=== PATIENT | female | born 1965 | race Caucasian/White ===

== ENCOUNTER 2017-05-03 10:00 | Emergency (ER) | payer MEDICARE ==
[2017-05-03] MEDS ORDERED: Metoclopramide HCl 10 MG/2 ML VIAL ONE (10:48)
[2017-05-03] MEDS ORDERED: diphenhydrAMINE HCl 50 MG/ML 1 ML VIAL ONE (10:48)
[2017-05-03 10:55] LABS: #Basophils 0.1 thou/uL (0.0-0.2); #Eosinphils 0.1 thou/uL (0.0-0.7); #Lymphocytes 2.4 thou/uL (1.20-3.40); #Monocytes 0.7 thou/uL (0.11-0.59); #Neutrophils 6.4 thou/uL (1.40-6.50); %Basophils 0.8 % (0.0-1.0); %Eosinophils 1.1 % (0.0-10.0); %Lymphocytes 24.6 % (21.0-51.0); %Monocytes 7.3 % (0.0-10.0); Hematocrit 48.4 % (36.0-47.0); Mean Platelet Volume 6.2 fL (7.4-10.4); Red Blood Cell (RBC) Count 5.59 mill/uL (4.20-5.40); White Blood Cell (WBC) Count 9.7 thou/uL (4.8-10.8)
[2017-05-03 11:15] LABS: ALT (SGPT) 10 U/L (8-55); AST (SGOT) 22 U/L (5-34); Alkaline Phosphatase 92 U/L (40-150); Anion Gap 15 mmol/L (10-20); BUN (Urea Nitrogen) 15 mg/dL (9.8-20.1); Bilirubin, Total 0.4 mg/dL (0.2-1.2); Calc. Creatinine Clearance 0 mL/min (70-130); Calcium 9.6 mg/dL (7.8-10.44); Carbon Dioxide 27 mmol/L (22-29); Chloride 101 mmol/L (98-107); Estimated GFR-MDRD 81; Globulin 3.8 g/dL (2.4-3.5); Protein, Total 7.7 g/dL (6.0-8.3)
[2017-05-03] MEDS ORDERED: Magnesium 2 GM/NS 0.9% 100 ML 2 GM in Premix Bag 1 BAG IVPB SCH (11:15)
--- NOTE | 2017-05-03 11:27 | CT ---
CT BRAIN WITHOUT CONTRAST: HISTORY: Headache, migraine. FINDINGS: Comparison is made with the exam of 06/21/13. No evidence of acute infarct, hemorrhage, midline shift, or abnormal extraaxial fluid collections is seen. The ventricular size is normal and the basilar cisterns patent. The bony calvarium is intac t. There is a small polyp/mucous retention cyst in the right maxillary sinus. IMPRESSION: No CT evidence of acute intracranial process. POS: YANNICKH
== END 2017-05-03 14:10 | disposition home or self-care (01) ==
LOC: ERS 10:00
DX: R51 Headache (principal); I11.0 Hypertensive heart disease with heart failure; I50.9 Heart failure, unspecified; E78.5 Hyperlipidemia, unspecified; F41.9 Anxiety disorder, unspecified; F32.9 Major depressive disorder, single episode, unspecified; Z79.899 Other long term (current) drug therapy
CPT/HCPCS: 36415; 70450; 80053; 85025; 94760; 96365; 96366; 96368; 96375; J1200; J2765; J3475

== ENCOUNTER 2017-12-29 09:56 | Outpatient (CLI) | payer MEDICARE | END 2017-12-29 09:57 | disposition home or self-care (01) | LOC: BICMAMMO 09:56 | PROVIDERS: ATTEND Internal Medicine Rheumatology | DX: M80.00XA Age-related osteoporosis with current pathological fracture, unspecified site, initial encounter for fracture (principal) | CPT/HCPCS: 77080 ==

== ENCOUNTER 2018-02-15 16:11 | Inpatient (IN) | payer MEDICARE ==
[2018-02-15] MEDS ORDERED: Ondansetron ODT 4 MG TAB PO PRN (17:42)
[2018-02-15] MEDS ORDERED: Acetaminophen 325 MG TAB PO PRN (17:42)
[2018-02-15] MEDS ORDERED: Sodium Chloride 0.9% 1,000 ML IV SCH (17:45)
[2018-02-15] MEDS ORDERED: Vancomycin HCl 1.25 GM in Sodium Chloride 0.9% 250 ML 250 ML IVPB SCH (17:45)
[2018-02-15] MEDS ORDERED: HYDROcodone/Acetaminophen 10/325 mg Tablet PO PRN (17:48)
[2018-02-15] MEDS ORDERED: SUMAtriptan Succinate 25 MG TAB PO PRN (17:48)
[2018-02-15] MEDS ORDERED: Furosemide 40 MG TAB PO PRN (17:48)
[2018-02-15] MEDS ORDERED: PROVENTIL INHALER 6.7 G (200 INHALATIONS) INH PRN (17:48)
[2018-02-15] MEDS ORDERED: EPINEPHRINE 0.3 MG IM PRN (17:48)
[2018-02-15 18:22] VITALS: BMI 32.3
[2018-02-15 18:27] LABS: #Basophils 0.1 thou/uL (0.0-0.2); #Eosinphils 0.1 thou/uL (0.0-0.7); #Lymphocytes 1.8 thou/uL (1.20-3.40); #Monocytes 0.8 thou/uL (0.11-0.59); #Neutrophils 9.2 thou/uL (1.40-6.50); %Basophils 0.7 % (0.0-1.0); %Eosinophils 0.7 % (0.0-10.0); %Lymphocytes 15.2 % (21.0-51.0); %Monocytes 6.7 % (0.0-10.0); %Neutrophils 76.8 % (42.0-75.0); Hemoglobin 13.2 g/dL (12.0-16.0); Mean Corpuscular HGB CONC 32.6 g/dL (32.0-36.0); Mean Corpuscular Hemoglobin 29.4 pg (27.0-31.0); Mean Corpuscular Volume 90.3 fL (78.0-98.0); Mean Platelet Volume 5.3 fL (7.4-10.4); Platelet Count 353 thou/uL (130-400); RBC Distribution Width 11.8 % (11.5-14.5); Red Blood Cell (RBC) Count 4.48 mill/uL (4.20-5.40)
[2018-02-15 18:45] LABS: Anion Gap 14 mmol/L (10-20); BUN (Urea Nitrogen) 15 mg/dL (9.8-20.1); Calc. Creatinine Clearance 139 mL/min (70-130); Calcium 8.7 mg/dL (7.8-10.44); Carbon Dioxide 23 mmol/L (22-29); Chloride 105 mmol/L (98-107); Estimated GFR-MDRD Greater than 90; Glucose 81 mg/dL (70-105); Potassium 4.4 mmol/L (3.5-5.1); Sodium 138 mmol/L (136-145)
[2018-02-15] MEDS ORDERED: METHadone HCl 10 MG TAB PO SCH (19:15)
[2018-02-15] MEDS ORDERED: cefTRIAXone\\ROCEPHIN 1 GM in Sodium Chloride 0.9% 100 ML IVPB SCH (20:00)
[2018-02-15] MEDS: Pravastatin Sodium 40 MG TAB PO SCH (20:53)
[2018-02-15] MEDS: clonazePAM 0.5 MG TAB PO SCH (20:53)
[2018-02-15] MEDS: Gabapentin 300 MG CAP PO SCH (20:53)
[2018-02-15] MEDS: Escitalopram Oxalate 20 mg Tablet PO SCH (20:53)
--- NOTE | 2018-02-15 20:59 | ULT ---
SOFT TISSUE ULTRASOUND 02/15/18 HISTORY: Possible abscess and cellulitis in the left groin. COMPARISON: None. TECHNIQUE: Targeted sonographic imaging of the left groin is performed. FINDINGS: There is evidence of edema on the static images. There is a complex echotexture structure in the left groin which appears to be just inferior to the dermis measuring 1.0 x 0.7 x 0.8 cm. An infected flui d collection cannot be excluded. No evidence of vascular flow. IMPRESSION: 1. Soft tissue cellulitis/edema. 2. Complex lesion in the subdermal soft tissues without evidence of flow. A small abscess/infect ed fluid collection should be considered. POS: BEE
[2018-02-15] MEDS: HYDROcodone/Acetaminophen 10/325 mg Tablet PO PRN (21:04)
[2018-02-16 00:24] LABS: Actual Bicarbonate (HCO3v) 34 mEq/L (22-28); Base Excess 5.7 mEq/L (-2.0 to +3.0); pH (venous) 7.318 (7.32-7.43)
[2018-02-16 00:25] LABS: Hemoglobin (Hb) 13.4 g/dL (11.7-16.0)
[2018-02-16 00:26] LABS: Calcium, Ionized 1.09 mmol/L (1.16-1.32); Chloride (ABG LAB) 101 mmol/L (98-106); Potassium - ABG Lab 4.4 mmol/L (3.70-5.30); Sodium 138.8 mmol/L (133-146)
[2018-02-16] MEDS: cefTRIAXone\\ROCEPHIN 1 GM in Sodium Chloride 0.9% 100 ML IVPB SCH ×2 (01:23→19:41)
[2018-02-16] MEDS: HYDROcodone/Acetaminophen 10/325 mg Tablet PO PRN ×2 (05:44→14:11)
[2018-02-16 05:55] LABS: #Basophils 0.1 thou/uL (0.0-0.2); #Eosinphils 0.3 thou/uL (0.0-0.7); #Lymphocytes 2.7 thou/uL (1.20-3.40); #Monocytes 0.9 thou/uL (0.11-0.59); #Neutrophils 6.2 thou/uL (1.40-6.50); %Basophils 0.6 % (0.0-1.0); %Eosinophils 3.4 % (0.0-10.0); %Lymphocytes 26.3 % (21.0-51.0); %Monocytes 9.1 % (0.0-10.0); %Neutrophils 60.7 % (42.0-75.0); Hemoglobin 11.7 g/dL (12.0-16.0); Mean Corpuscular HGB CONC 33.4 g/dL (32.0-36.0); Mean Platelet Volume 5.7 fL (7.4-10.4); Platelet Count 321 thou/uL (130-400); RBC Distribution Width 11.7 % (11.5-14.5); Red Blood Cell (RBC) Count 3.91 mill/uL (4.20-5.40); White Blood Cell (WBC) Count 10.1 thou/uL (4.8-10.8)
[2018-02-16] MEDS ORDERED: Vancomycin HCl 1.5 GM in Sodium Chloride 0.9% 250 ML 300 ML IVPB SCH (06:00)
[2018-02-16 06:10] LABS: Anion Gap 12 mmol/L (10-20); BUN (Urea Nitrogen) 16 mg/dL (9.8-20.1); Calc. Creatinine Clearance 143 mL/min (70-130); Calcium 8.3 mg/dL (7.8-10.44); Carbon Dioxide 31 mmol/L (22-29); Chloride 102 mmol/L (98-107); Estimated GFR-MDRD Greater than 90; Glucose 101 mg/dL (70-105); Potassium 3.9 mmol/L (3.5-5.1); Sodium 141 mmol/L (136-145)
--- NOTE | 2018-02-16 06:38 | PDOC.FM ---
- Subjective Subjective: Lyn Abad seen at bedside this morning. She is doing well. Overnight she peripheral IV access was lost. Left IJ placed by Dr. Nayak. On CXR, radiologist had concern for arterial placement. Blood gas confirmed venous placement. No other acute events overnight. Patient remained afebrile. Denies fever, chills, chest pain, dyspnea, n/v. Pain is well controlled but is still present from cellulitis. - Objective MAR Reviewed: Yes Vital Signs & Weight: Vital Signs (12 hours) Temp Pulse Resp BP Pulse Ox 02/16/18 04:47 98.6 F 73 18 117/81 97 02/16/18 01:24 99 F 83 18 117/81 94 L 02/15/18 20:40 99.1 F 84 18 133/66 95 02/15/18 20:00 99.1 F 84 18 95 Weight Weight 88.224 kg I&O: 02/14/18 02/15/18 02/16/18 06:59 06:59 06:59 Intake Total 1070 Balance 1070 Result Diagrams: 02/16/18 04:32 02/16/18 04:32 <Demian Bach - Last Filed: 02/16/18 08:55> - Objective Vital Signs & Weight: Vital Signs (12 hours) Temp Pulse Resp BP Pulse Ox 02/16/18 08:17 99.1 F 76 16 119/77 96 02/16/18 08:00 99.1 F 76 16 96 02/16/18 04:47 98.6 F 73 18 117/81 97 02/16/18 01:24 99 F 83 18 117/81 94 L Weight Admit Weight 88.224 kg Weight 88.224 kg I&O: 02/15/18 02/16/18 02/17/18 06:59 06:59 06:59 Intake Total 1070 Balance 1070 Result Diagrams: 02/16/18 04:32 02/16/18 04:32 <Omar Westbrook - Last Filed: 02/16/18 12:11> Phys Exam - Physical Examination Constitutional: NAD HEENT: moist MMs, sclera anicteric Neck: no JVD, supple, full ROM Respiratory: no wheezing, no rales, no rhonchi, clear to auscultation bilateral Cardiovascular: RRR, no significant murmur Gastrointestinal: soft, non-tender, no distention Musculoskeletal: no edema, pulses present Neurological: non-focal, normal sensation, moves all 4 limbs Psychiatric: normal affect, A&O x 3 Deviation from normal: no progression of erythema or edema to left groin -: site is still indurated <Demian Bach - Last Filed: 02/16/18 08:55> Dx/Plan (1) Left leg cellulitis Code(s): L03.116 - CELLULITIS OF LEFT LOWER LIMB Status: Acute (2) Scleroderma Code(s): M34.9 - SYSTEMIC SCLEROSIS, UNSPECIFIED Status: Chronic (3) Rheumatoid arthritis Code(s): M06.9 - RHEUMATOID ARTHRITIS, UNSPECIFIED Status: Chronic (4) Inflammatory polyarthritis Code(s): M06.4 - INFLAMMATORY POLYARTHROPATHY Status: Chronic (5) COPD, severe Code(s): J44.9 - CHRONIC OBSTRUCTIVE PULMONARY DISEASE, UNSPECIFIED Status: Chronic (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 - JONO-DANLOS SYNDROME Status: Chronic (7) Hypertension Code(s): I10 - ESSENTIAL (PRIMARY) HYPERTENSION Status: Chronic (8) Paroxysmal a-fib Code(s): I48.0 - PAROXYSMAL ATRIAL FIBRILLATION Status: Chronic - Plan Plan: 1) Cellulitis, left groin - S/p I&D in [facility], wound cultures obtained in clinic, Temp as high as 102 at home - Cellulitis in setting of immunocompromised patient with multiple comorbidities, felt admission was necessary - Starting on Vancomycin and Rocephin - Cont to monitor - Cont IVFs 2) Steroid dependent COPD - Continue supplemental O2, baseline home O2 is 2-3 L NC - Continue home prednisone 3) Scleroderma - home meds 4) RA: - Home meds - on daily opioids 5) Jono-Danlos - home meds - difficulty with Peripheral IV placement - left IJ central venous line placed last night 6) pAfib - continue to monitor routine vitals 7) HTN - home meds <Demian Bach - Last Filed: 02/16/18 08:55> Attending Addendum - Attending Addendum Date/Time: 02/16/18 [id number] I personally evaluated the patient and discussed the management with Dr. Bach. I agree with the History, Examination, Assessment and Plan documented above with any addition or exceptions noted below. Patient here for L groin abscess s/p outpatient I&D in the setting of chronic immune suppression due to comorbid autoimmmune conditions. She reports pain continues to occur, and the site continues to drain. Cultures pending in outpatient setting. Continue Vanc and Rocephin for now. Will sofia area to ensure improvement over the weekend. Anticipate several days hospitalization due to location of this abscess. No further fluctuance, but area continues to be largely indurated. If not improving in next 48 hours or so, may need GenSurg consult to consider further I&D versus debridement though U/S did not show any large fluid collections at this time. Continue wound care. <Omar Westbrook - Last Filed: 02/16/18 12:11>
--- NOTE | 2018-02-16 08:36 | RAD ---
ONE VIEW CHEST: HISTORY: Central line placement. COMPARISON: 03/24/2016 FINDINGS: AP upright chest radiograph demonstrates a left-sided catheter with the distal tip projecting over th e aortic arch. The possibility of arterial access is raised. There is no pneumothorax. Normal card iac silhouette. The right hemidiaphragm is elevated. IMPRESSION: Left-sided catheter, as described above. The possibility of arterial access is raised. Correlate wi arterial blood gas. The results of the study were discussed with Dr. Nayak, as well as the patient's nurse, Clemencia, on 02/16/2018 at 12:07 a.m. CODE CR POS: YANNICK
[2018-02-16] MEDS: Ondansetron HCl/PF 4 MG/2 ML Vial IVP PRN (08:43)
[2018-02-16] MEDS ORDERED: RISEDRONATE SODIUM 35 MG PO SCH (09:00)
--- NOTE | 2018-02-16 09:00 | OP-2 ---
DATE OF PROCEDURE: 02/15/2018 RESIDENT: Sofia Nayak M.D. ATTENDING PHYSICIAN: William Franco D.O. PROCEDURE: Left internal jugular central line placement. INDICATIONS: No peripheral access. Connective tissue disorder. Unable to obtain peripheral access. Need for IV antibiotics. ESTIMATED BLOOD LOSS: 5 mL. PROCEDURE IN DETAIL: After risks, benefits, and alternatives were explained to the patient, informed consent was obtained. A preprocedural survey of the patient's neck vasculature was performed and the left internal jugular was determined to be the best approach. The patient was prepped and draped in usual sterile fashion. The left internal jugular vein was identified on ultrasound and verified using color flow Doppler and vessel compression. Skin was anesthetized with 5 mL of 1% lidocaine without epinephrine. The left internal jugular vein was cannulated using the introducer needle under ultrasound visualization. Slow blood return was noted to be coming through the introducer needle. The J-wire was then easily passed through the introducer needle to the level of approximately 25 cm. The introducer needle was then removed and the skin was nicked with an 11 blade. A soft tissue dilator was then passed over the J wire. The dilator was removed and the central line was placed to the 17 cm sofia. The line was sutured in place using a 3-0 nylon suture. Prior to suturing the central line, all 3 ports were aspirated and flushed and determined to be in good working position. The line was then covered with a sterile dressing with antimicrobial gel patch over the entry site. A post-procedural chest x-ray was obtained and showed no pneumothorax, but showed that the tip of the triple-lumen catheter was overlying the aortic knob. The provider was called regarding this finding and radiologist recommended blood gas analysis from the line to verify that the line was not located within the arterial system. Provider went and jones blood from the central line. At this time it was noted that the brown central port was no longer flushing or aspirating. Blood was easily obtained from the blue side port. Blood gas analysis revealed a pH of 7.318, pCO2 of 67.8 and a pO2 of 25.1 with a bicarbonate of 34.0. Based on blood gas analysis it appears that the tip of the catheter is in the left subclavian vein. Findings were discussed with Dr. Franco who was in agreement. The patient tolerated the procedure well. Dr. Franco was present for the placement of the central line and left at the time the line was stitched into place. SUSANNAH
--- NOTE | 2018-02-16 09:00 | HP-2 ---
DATE OF ADMISSION: 02/15/2018 TIME: 1730. CODE STATUS: DNI. PRIMARY CARE PHYSICIAN: Dr. Demian Bach. ATTENDING: Flakita Bahena M.D. RESIDENT: Dr. Benjamin Li. HISTORIAN: The patient. CHIEF COMPLAINT: Groin pain. HISTORY OF PRESENT ILLNESS: This is a 52-year-old female with an extensive past medical history who presented to [facility] today for swelling, redness, and pain to the left groin region. This pain initially started about 6 days ago and began as a small lesion that the patient thought was an ingrown hair. Two days ago, it acutely worsened with increased redness and pain and subjective fevers. The area of swelling and induration burst while patient was in the shower, leaking pus and blood. Patient is now nauseous with continued subjective fevers. Incision and drainage was performed in the outside office with wound cultures taken. Physicians were able to express small amount of serosanguineous fluid from the indurated incision site. Patient has been recently diagnosed with rheumatoid arthritis and scleroderma by lead loader. She has been started on leflunomide, Atelvia and has been on chronic prednisone for some time. The patient is immunocompromised with a significant burden of past medical history. PAST MEDICAL HISTORY: 1. Jono-Danlos syndrome. 2. Hypertension. 3. Hyperlipidemia. 4. Chronic obstructive pulmonary disease. 5. Paroxysmal atrial fibrillation. 6. Migraine with aura. 7. Severe osteoporosis. 8. Anxiety with depression. 9. Congestive heart failure. 10. Sleep apnea. 11. 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 12. Rheumatoid arthritis. 13. Scleroderma. 14. Vitamin D deficiency. PAST SURGICAL HISTORY: 1. Appendectomy in 1981. 2. Cholecystectomy in 1988. 3. Hysterectomy in 2003. 4. Tonsillectomy at 18 years of age. ALLERGIES: IODINE, NSAIDs, SULFONAMIDES, and PENICILLIN. CURRENT MEDICATIONS: 1. Calcium carbonate 1000 mg p.o. daily. 2. Vitamin D3 of 8000 units p.o. daily. 3. Clonazepam 0.5 mg p.o. b.i.d. 4. Plavix 75 mg p.o. daily. 5. Citalopram 20 mg p.o. q.p.m. 6. Fluticasone nasal spray two sprays in each naris daily. 7. Furosemide 40 mg p.o. b.i.d. 8. Gabapentin 300 mg p.o. b.i.d. 9. Turner 10/325 one-tab q.6 hours p.r.n. 10. Leflunomide 20 mg p.o. daily. 11. Methadone 20 mg p.o. daily. 12. Mirabegron 50 mg p.o. daily. 13. Singulair 10 mg p.o. daily. 14. Potassium chloride 20 mEq p.o. daily. 15. Pravastatin 40 mg p.o. q.p.m. 16. Prednisone 5 mg p.o. daily. 17. Atelvia 35 mg p.o. every 7 days. 18. Sumatriptan 25 mg p.o. q.4 hours. FAMILY HISTORY: Significant for sister with Jono-Danlos syndrome, father with kidney disease, hypertension, and mother with hypertension. SOCIAL HISTORY: Patient denies tobacco, alcohol, or drug use. REVIEW OF SYSTEMS: General: Denies fever, chills, denies night sweats. ENT: Denies nasal congestion. Denies sore throat. Respirations: Denies cough, no congestion. Cardiovascular: Denies chest pain, denies palpitations. GI: Endorses nausea, denies vomiting, denies diarrhea. : Denies incontinence. Denies dysuria. Skin: Endorses lesions. Endorses swelling. Endorses pain. Musculoskeletal: Denies joint pain. Denies muscle tenderness. Neurologic: Denies weakness denies numbness. Psychiatric: Denies anxiety. Denies depression. PHYSICAL EXAMINATION: VITAL SIGNS: Temperature 99.4, pulse 92, respirations 18, O2 sats 95% on 3 liters nasal cannula, blood pressure is 131/86. GENERAL: Alert, oriented x3, in no acute distress, obese. ENT: Nasal mucosa within normal limits. Oropharynx within normal limits. NECK: Supple, without lymphadenopathy. CARDIOVASCULAR: Regular rate and rhythm. No murmurs. RESPIRATORY: Normal effort, clear to auscultation bilaterally. ABDOMEN: Soft, nontender to palpation. No masses or distention felt. EXTREMITIES: No clubbing, cyanosis. NEUROLOGIC: Cranial nerves are II-XII intact. SKIN: Erythematous, edematous, and tender area of induration of the left groin measuring approximately 4 x 4 cm, concerning for tracking and tunneling. PSYCHIATRIC: Alert and oriented. LABORATORY DATA: White blood cell count 12.0, hemoglobin 13.2, hematocrit 40.0 , platelets of 303. Sodium 138, potassium 4.4, chloride 105, bicarbonate 23, BUN 15, creatinine 0.66, glucose of 81. ASSESSMENT AND PLAN: 1. Cellulitis with abscess to the left groin, status post drainage: We will obtain ultrasound of the groin to check for any more fluid pockets that would be amenable to I&D. We will start the patient on vancomycin dose per pharmacy until we can calculate creatinine clearance. Patient is immunocompromised and we will need broad spectrum antibiotics until culture results. Wound culture sent from the office. 2. Scleroderma. We will continue the prednisone and immunomodulator started by her lead loader last week. 3. Rheumatoid arthritis. See plans for scleroderma. 4. Chronic obstructive pulmonary disease. We will continue home medications. 5. Paroxysmal atrial fibrillation. We will continue home medications. 6. Chronic pain. Continue home medications. 7. Essential hypertension. Continue home medications. 8. Osteoporosis. Continue home medications. 9. Hyperlipidemia. Continue home medications. 10. Depression. Continue home medications. 11. Vitamin D deficiency. Continue home medications. 12. Jono-Danlos syndrome. DISPOSITION AND LENGTH OF HOSPITAL STAY: 2+ days, symptomatic meds will be provided. Assessment and plan discussed with Dr. Sophia Gannon. SUSANNAH
[2018-02-16] MEDS: predniSONE 5 MG TAB PO SCH (10:26)
[2018-02-16] MEDS: clonazePAM 0.5 MG TAB PO SCH ×2 (10:27→19:41)
[2018-02-16] MEDS: Leflunomide 10 mg Tablet PO SCH (10:28)
[2018-02-16] MEDS: Furosemide 40 MG TAB PO SCH (10:28)
[2018-02-16] MEDS: Clopidogrel Bisulfate 75 MG TAB PO SCH (10:28)
[2018-02-16] MEDS: Gabapentin 300 MG CAP PO SCH ×2 (10:29→19:41)
[2018-02-16] MEDS: Potassium Chloride 20 MEQ TAB PO SCH (10:29)
[2018-02-16] MEDS: Montelukast Sodium 10 mg Tablet PO SCH (10:29)
[2018-02-16] MEDS: Fluticasone Propionate Nasal Spray 16 gm Bottle NASAL SCH (10:29)
[2018-02-16] MEDS: Calcium Carbonate 500 MG TAB PO SCH (10:31)
[2018-02-16] MEDS: Vancomycin HCl 1.5 GM in Sodium Chloride 0.9% 250 ML 300 ML IVPB SCH (13:23)
[2018-02-16] MEDS: METHadone HCl 10 MG TAB PO SCH (16:09)
[2018-02-16] MEDS: Escitalopram Oxalate 20 mg Tablet PO SCH (19:41)
[2018-02-16] MEDS: Pravastatin Sodium 40 MG TAB PO SCH (19:41)
[2018-02-17] MEDS: Vancomycin HCl 1.5 GM in Sodium Chloride 0.9% 250 ML 300 ML IVPB SCH ×2 (01:59→12:38)
--- NOTE | 2018-02-17 07:26 | PDOC.FM ---
- Subjective Subjective: Patient is feeling well this morning although reports continued pain in groin area and no improvement in abscess site. She is tolerating PO liquids but has no appetite. No fevers documented but reports feeling feverish. No acute events overnight. - Objective MAR Reviewed: Yes Vital Signs & Weight: Vital Signs (12 hours) Temp Pulse Resp BP Pulse Ox 02/17/18 04:46 94 L 02/17/18 00:00 98.7 F 02/16/18 20:00 99.2 F 79 18 107/76 94 L Weight Admit Weight 88.224 kg Weight 88.224 kg I&O: 02/16/18 02/17/18 02/18/18 06:59 06:59 06:59 Intake Total 1070 830 Balance 1070 830 Result Diagrams: 02/16/18 04:32 02/16/18 04:32 <Akilah Smith - Last Filed: 02/17/18 10:57> - Objective Vital Signs & Weight: Vital Signs (12 hours) Temp Pulse Resp BP Pulse Ox 02/17/18 08:08 98.8 F 68 18 113/76 97 02/17/18 04:46 94 L 02/17/18 00:00 98.7 F Weight Admit Weight 88.224 kg Weight 88.224 kg I&O: 02/16/18 02/17/18 02/18/18 06:59 06:59 06:59 Intake Total 1070 830 Balance 1070 830 Result Diagrams: 02/16/18 04:32 02/16/18 04:32 <Cynthia Faria - Last Filed: 02/17/18 11:09> Phys Exam - Physical Examination Constitutional: NAD HEENT: moist MMs Respiratory: no wheezing, no rales Cardiovascular: RRR Gastrointestinal: soft, non-tender L groin with abscess s/p i&d. incision draining serous fluid, ttp induration, erythema, and area of fluctuation at 3oclock from incision Musculoskeletal: no edema Neurological: moves all 4 limbs Psychiatric: A&O x 3 <Akilah Smith - Last Filed: 02/17/18 10:57> Dx/Plan (1) Cellulitis Code(s): L03.90 - CELLULITIS, UNSPECIFIED Status: Acute (2) Abscess Code(s): L02.91 - CUTANEOUS ABSCESS, UNSPECIFIED Status: Acute (3) Rheumatoid arthritis Code(s): M06.9 - RHEUMATOID ARTHRITIS, UNSPECIFIED Status: Chronic (4) COPD, severe Code(s): J44.9 - CHRONIC OBSTRUCTIVE PULMONARY DISEASE, UNSPECIFIED Status: Chronic (5) Lan-Danlos disease Code(s): Q79.6 - LAN-DANLOS SYNDROME Status: Chronic (6) Hypertension Code(s): I10 - ESSENTIAL (PRIMARY) HYPERTENSION Status: Chronic (7) Paroxysmal a-fib Code(s): I48.0 - PAROXYSMAL ATRIAL FIBRILLATION Status: Chronic (8) Depression Code(s): F32.9 - MAJOR DEPRESSIVE DISORDER, SINGLE EPISODE, UNSPECIFIED Status : Chronic - Plan Plan: Cellulitis and Abscess of left groin in Immunocompromised - S/p I&D in [facility], wound cultures obtained in clinic, no results yet, Temp as high as 102 at home - no improvement since admission, concern for 2nd abcess - consult GS for eval for debridement - continue wound care - continue IV Vancomycin and Rocephin, plan to change to PO once sensitivites are back - PO hydration Steroid dependent COPD - Continue supplemental O2, baseline home O2 is 2-3 L NC - Continue home prednisone Scleroderma - home meds RA: - Home meds - on daily opioids Lan-Danlos - home meds - difficulty with Peripheral IV placement - left IJ central venous line placed last night pAfib - continue to monitor routine vitals HTN - home meds Hx of Migraines - home meds Depression - continue home medications. Dispo: d/c after sensitivities are back for appropriate PO abx. <Akilah Smith - Last Filed: 02/17/18 10:57> Attending Addendum - Attending Addendum Date/Time: 02/17/18 1107 I personally evaluated the patient at 0900 am and discussed the management with Dr. Smith. I agree with the History, Examination, Assessment and Plan documented above with any addition or exceptions noted below. Left groin/mons abscess and cellulitis- significant induration and new fluctuance superilaterally to prior incision- continue IV abx and warm compresses. Gen Surg consult since patient has pain control issues and may need further I&D under anesthesia. Lan Danlos and scleroderma- home meds Chronic Pain- controlled at this time. Patient on home methadone. Continue home meds + prn morphiine. May need anesthesia on board if pain worsens. <Cynthia Faria - Last Filed: 02/17/18 11:09>
[2018-02-17] MEDS: Fluticasone Propionate Nasal Spray 16 gm Bottle NASAL SCH (08:18)
[2018-02-17] MEDS: predniSONE 5 MG TAB PO SCH (08:20)
[2018-02-17] MEDS: Leflunomide 10 mg Tablet PO SCH (08:20)
[2018-02-17] MEDS: Gabapentin 300 MG CAP PO SCH ×2 (08:20→21:08)
[2018-02-17] MEDS: clonazePAM 0.5 MG TAB PO SCH ×2 (08:20→20:30)
[2018-02-17] MEDS: Furosemide 40 MG TAB PO SCH (08:20)
[2018-02-17] MEDS: Montelukast Sodium 10 mg Tablet PO SCH (08:20)
[2018-02-17] MEDS: Potassium Chloride 20 MEQ TAB PO SCH (08:20)
[2018-02-17] MEDS: Clopidogrel Bisulfate 75 MG TAB PO SCH (08:20)
[2018-02-17] MEDS: Calcium Carbonate 500 MG TAB PO SCH ×2 (08:49→09:45)
[2018-02-17] MEDS: Ondansetron HCl/PF 4 MG/2 ML Vial IVP PRN (08:49)
[2018-02-17 13:27] LABS: Vancomycin, Trough 17.4 ug/mL
[2018-02-17] MEDS ORDERED: Hydrocortisone Sod Succ/PF 100 mg/2 ml Vial ONE (13:55)
[2018-02-17] MEDS ORDERED: PROPOFOL 200 MG/20 ML VIAL ONE (13:55)
[2018-02-17] MEDS ORDERED: Lidocaine 1% PF 5 ML VIAL ONE (13:55)
[2018-02-17] MEDS: METHadone HCl 10 MG TAB PO SCH (16:35)
--- NOTE | 2018-02-17 16:44 | CON ---
DATE OF CONSULTATION: 02/17/2018 REASON FOR CONSULTATION: Left groin abscess. 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 She now has erythema of most of her left labia anteriorly and it is still angie y tender. She has not had much drainage despite an I&D in the clinic and has not improved on IV vanc omycin. PAST MEDICAL HISTORY: Extensive including rheumatoid arthritis, Jono-Danlos syndrome, hypertension , hyperlipidemia, COPD on home oxygen, paroxysmal atrial fibrillation, congestive heart failure, slee p apnea and recently diagnosed scleroderma, and longstanding rheumatoid arthritis. She also has asa min D deficiency, anxiety, depression, and osteoporosis, as well as migraines. PAST SURGICAL HISTORY: Appendectomy, cholecystectomy, hysterectomy, tonsillectomy all over 20 years ago. ALLERGIES: She reports allergies to IODINE, NSAIDs, SULFA, and PENICILLIN. OUTPATIENT MEDICATIONS: Include Vitamin D, calcium, clonazepam, Plavix, citalopram, fluticasone, [place], gabapentin, Pearl, methadone, leflunomide, mirabegron, Singulair, potassium, pravastatin, prednis one 5 mg daily, Atelvia, and sumatriptan. INPATIENT MEDICATIONS: She is on vancomycin, hydrocodone, albuterol, calcium, ceftriaxone, vitamin D , clonazepam, Plavix, escitalopram, fluticasone, Lasix, gabapentin, leflunomide, methadone, mirabegro n, montelukast, risedronate, potassium, pravastatin, prednisone 5 mg daily, and multiple p.r.n. FAMILY HISTORY: Jono-Danlos, kidney disease, and hypertension. REVIEW OF SYSTEMS: Ten-system review of systems is negative except per HPI and the following: She d oes report subjective fevers prior to admission, chronic dyspnea on exertion, and chronic pain. PHYSICAL EXAMINATION: GENERAL: Reveals a comfortable appearing woman in no acute distress. She is not flushed or toxic or diaphoretic. She is not jaundiced or icteric. HEENT: Unremarkable. NECK: Supple without significant lymphadenopathy. HEART: Regular in its rate and rhythm without murmurs, rubs or gallops. LUNGS: Clear, although breath sounds are quite distant and diminished bilaterally. ABDOMEN: Soft, nontender and nondistended with healed lower midline incisions. EXTREMITIES: Warm and well perfused without edema. Her left labia is very indurated, tender and clayton thematous. She has a small I&D site without any expressible drainage. NEUROLOGIC: No focal deficits. PSYCHIATRIC: Alert, oriented, and appropriate. LABORATORY DATA: White count is normal at 10.1 yesterday, down from 12 at admission. She did have a left shift of 76% neutrophils on admission. Bicarb is 31, but other electrolytes are unremarkable. Soft tissue ultrasound showed edema of the soft tissues and a hypoechoic fluid collection in the sub dermal tissues with no flow consistent with abscess. ASSESSMENT: Left groin abscess, which failed I&D in the clinic. She has a large amount of induratio n and did not have adequate anesthesia with local alone in the clinic, so I will plan to take her to the operating room for repeat I&D. She did have breakfast before 8:00, but nothing since and we will keep her n.p.o. until after OR. Postoperatively, she will require ongoing wound care and antibiotic s. The procedure and its inherent risks were discussed with the patient and her mother understand an d accept these risks and wish to proceed. She does give permission to intubate her if need be. Alth ough, I do not anticipate that this will be necessary.
[2018-02-17] MEDS: cefTRIAXone\\ROCEPHIN 1 GM in Sodium Chloride 0.9% 100 ML IVPB SCH (20:32)
[2018-02-17] MEDS: Escitalopram Oxalate 20 mg Tablet PO SCH (21:08)
[2018-02-17] MEDS: Pravastatin Sodium 40 MG TAB PO SCH (21:08)
[2018-02-17] MEDS ORDERED: Morphine 4 MG/ML VIAL ONE (22:03)
[2018-02-17] MEDS ORDERED: Fentanyl 100 MCG/2 ML VIAL ONE ×3 (22:44→23:36)
[2018-02-17] MEDS ORDERED: Bupivacaine/Epinephrine 0.25% 30 ML VIAL ONE (23:08)
[2018-02-17] MEDS ORDERED: Promethazine HCl 25 MG/ML VIAL IM PRN (23:30)
[2018-02-17] MEDS ORDERED: Promethazine HCl 25 MG/ML VIAL SLOW IVP PRN (23:30)
[2018-02-17] MEDS ORDERED: Ondansetron HCl/PF 4 MG/2 ML Vial IVP PRN (23:30)
[2018-02-18] MEDS: Vancomycin HCl 1.5 GM in Sodium Chloride 0.9% 250 ML 300 ML IVPB SCH ×2 (01:30→13:35)
--- NOTE | 2018-02-18 07:01 | PDOC.FM ---
- Subjective Subjective: Patient is doing well this morning. Reports pain is much improved. She was taken back to the OR for surgical I&D around 0000, so she does report some fatigue. Otherwise is wanting to try to eat breakfast. No other complaints. Voiding/stooling normally. - Objective MAR Reviewed: Yes Vital Signs & Weight: Vital Signs (12 hours) Temp Pulse Resp BP Pulse Ox 02/18/18 04:33 98.6 F 70 20 103/67 95 02/17/18 20:00 98.8 F 74 20 115/76 96 Weight Admit Weight 88.224 kg Weight 88.224 kg I&O: 02/17/18 02/18/18 02/19/18 06:59 06:59 06:59 Intake Total 830 240 Balance 830 240 Result Diagrams: 02/16/18 04:32 02/16/18 04:32 <Akilah Smith - Last Filed: 02/18/18 07:43> - Objective Vital Signs & Weight: Vital Signs (12 hours) Temp Pulse Resp BP Pulse Ox 02/18/18 20:50 98.0 F 76 20 109/71 97 02/18/18 19:44 98.1 F 57 L 16 96 Weight Admit Weight 88.224 kg Weight 88.224 kg I&O: 02/17/18 02/18/18 02/19/18 06:59 06:59 06:59 Intake Total 830 1010 600 Balance 830 1010 600 Result Diagrams: 02/16/18 04:32 02/16/18 04:32 <Cynthia Faria - Last Filed: 02/18/18 22:29> Phys Exam - Physical Examination Constitutional: NAD HEENT: moist MMs Respiratory: no wheezing, no rales, clear to auscultation bilateral distant breath sounds Cardiovascular: RRR, no significant murmur Gastrointestinal: soft, non-tender I&D sites with serous drainage, improved erythema and induration Neurological: moves all 4 limbs Psychiatric: A&O x 3 <Akilah Smith - Last Filed: 02/18/18 07:43> Dx/Plan (1) Cellulitis Code(s): L03.90 - CELLULITIS, UNSPECIFIED Status: Acute (2) Abscess Code(s): L02.91 - CUTANEOUS ABSCESS, UNSPECIFIED Status: Acute (3) Rheumatoid arthritis Code(s): M06.9 - RHEUMATOID ARTHRITIS, UNSPECIFIED Status: Chronic (4) COPD, severe Code(s): J44.9 - CHRONIC OBSTRUCTIVE PULMONARY DISEASE, UNSPECIFIED Status: Chronic (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 Daniel yesterday - continue wound care for dressing changes, will need outpatient wound care - continue IV Vancomycin and Rocephin, plan to change to PO once sensitivites are back - PO hydration Steroid dependent COPD - Continue supplemental O2, baseline home O2 is 2-3 L NC - Continue home prednisone Scleroderma - home meds RA: - Home meds - on daily opioids Lan-Danlos - home meds - difficulty with Peripheral IV placement - left IJ central venous line in place pAfib - continue to monitor routine vitals HTN - home meds Hx of Migraines - home meds Depression - continue home medications. Dispo: d/c after sensitivities are back for appropriate PO abx. <Akilah Smith - Last Filed: 02/18/18 07:43> Attending Addendum - Attending Addendum Date/Time: 02/18/181 I personally evaluated the patient at 0855 am and discussed the management with Dr. Smith I agree with the History, Examination, Assessment and Plan documented above with any addition or exceptions noted below. Abscess- improving- expect d/c tomorrow after sensitivities return and wound care plan set up. <Cynthia Faria - Last Filed: 02/18/18 22:29>
[2018-02-18] MEDS: Leflunomide 10 mg Tablet PO SCH (08:21)
[2018-02-18] MEDS: clonazePAM 0.5 MG TAB PO SCH ×2 (08:21→20:30)
[2018-02-18] MEDS: predniSONE 5 MG TAB PO SCH (08:21)
[2018-02-18] MEDS: Calcium Carbonate 500 MG TAB PO SCH (08:21)
[2018-02-18] MEDS: Furosemide 40 MG TAB PO SCH (08:22)
[2018-02-18] MEDS: Potassium Chloride 20 MEQ TAB PO SCH (08:22)
[2018-02-18] MEDS: Fluticasone Propionate Nasal Spray 16 gm Bottle NASAL SCH (08:22)
[2018-02-18] MEDS: Montelukast Sodium 10 mg Tablet PO SCH (08:22)
[2018-02-18] MEDS: Gabapentin 300 MG CAP PO SCH ×2 (08:22→20:32)
[2018-02-18] MEDS: Clopidogrel Bisulfate 75 MG TAB PO SCH (08:22)
[2018-02-18] MEDS: Ondansetron HCl/PF 4 MG/2 ML Vial IVP PRN (08:56)
[2018-02-18 15:03] LABS: Vancomycin, Trough 15.8 ug/mL
--- NOTE | 2018-02-18 15:55 | PDOC.GSPN ---
Surgery Progress Note: Subj - Subjective Narrative: Patient is feeling better than yesterday. She is still sore at her operative site but not as tender as she was before her I&D. Her wound is clean and without expressible purulence. There is still a rim of induration tissue around the abscess cavity. Assessment/plan: Status post I&D of left groin abscess doing well. Continue wet- to-dry dressings and antibiotics. Eventually the induration in the surrounding tissues will either resolve or abscess. Surgery Progress Note: Obj - Vital signs Vital signs: Vital Signs - Most Recent Temp Pulse Resp BP Pulse Ox 98.1 F 57 L 16 121/76 98 02/18/18 08:00 02/18/18 08:00 02/18/18 08:00 02/18/18 08:00 02/18/18 08:00 Surgery Progress Note: Results - Labs Result Diagrams: 02/16/18 04:32 02/16/18 04:32 Lab results: Laboratory Results - last 24 hr 02/18/18 14:38 Vancomycin Trough 15.8
[2018-02-18] MEDS: Clindamycin 150 MG CAP PO SCH (16:21)
[2018-02-18] MEDS: METHadone HCl 10 MG TAB PO SCH (17:24)
[2018-02-18] MEDS: HYDROcodone/Acetaminophen 10/325 mg Tablet PO PRN (20:29)
[2018-02-18] MEDS: Escitalopram Oxalate 20 mg Tablet PO SCH (20:31)
[2018-02-18] MEDS: Pravastatin Sodium 40 MG TAB PO SCH (20:32)
[2018-02-19] MEDS: Clindamycin 150 MG CAP PO SCH ×3 (00:34→16:01)
--- NOTE | 2018-02-19 05:18 | PDOC.FM ---
- Subjective Subjective: Patient is doing well this morning. Reports pain is much improved. Nausea overnight that resolved with Zofran. No other complaints. Voiding/stooling normally. 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 - Objective MAR Reviewed: Yes Vital Signs & Weight: Vital Signs (12 hours) Temp Pulse Resp BP Pulse Ox 02/19/18 01:00 97 02/18/18 20:50 98.0 F 76 20 109/71 97 02/18/18 19:44 98.1 F 57 L 16 96 Weight Admit Weight 88.224 kg Weight 88.224 kg I&O: 02/17/18 02/18/18 02/19/18 06:59 06:59 06:59 Intake Total 830 1010 600 Balance 830 1010 600 Result Diagrams: 02/19/18 05:45 02/19/18 05:45 Phys Exam - Physical Examination Constitutional: NAD Respiratory: clear to auscultation bilateral Cardiovascular: RRR Gastrointestinal: soft, non-tender, positive bowel sounds Musculoskeletal: pulses present Psychiatric: normal affect, A&O x 3 Skin: cap refill <2 seconds Deviation from normal: Dressing covering wound on groin. No surrounding erythema Dx/Plan (1) Abscess Code(s): L02.91 - CUTANEOUS ABSCESS, UNSPECIFIED Status: Acute (2) Cellulitis Code(s): L03.90 - CELLULITIS, UNSPECIFIED Status: Acute (3) Depression Code(s): F32.9 - MAJOR DEPRESSIVE DISORDER, SINGLE EPISODE, UNSPECIFIED Status : Chronic (4) Rheumatoid arthritis Code(s): M06.9 - RHEUMATOID ARTHRITIS, UNSPECIFIED Status: Chronic (5) Scleroderma Code(s): M34.9 - SYSTEMIC SCLEROSIS, UNSPECIFIED Status: Chronic (6) HLD (hyperlipidemia) Code(s): E78.5 - HYPERLIPIDEMIA, UNSPECIFIED Status: Chronic (7) COPD, severe Code(s): J44.9 - CHRONIC OBSTRUCTIVE PULMONARY DISEASE, UNSPECIFIED Status: Chronic (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 Daniel yesterday - Continue wound care for dressing changes, will need outpatient wound care - Continue Clindamycin, Vanc & Zosyn d/c'ed 02/18 - PO hydration Steroid dependent COPD - Continue supplemental O2, baseline home O2 is 2-3 L NC - Continue home prednisone Scleroderma - Home meds RA - Home meds - on daily opioids Jono-Danlos - Home meds - difficulty with Peripheral IV placement - left IJ central venous line in place pAfib - Continue to monitor routine vitals HTN - Home meds Hx of Migraines - Home meds Depression - continue home medications. Dispo: likely d/c today once Dr Daniel has signed off
[2018-02-19] MEDS: HYDROcodone/Acetaminophen 10/325 mg Tablet PO PRN ×3 (05:25→17:42)
[2018-02-19 06:11] LABS: #Eosinphils 0.3 thou/uL (0.0-0.7); #Lymphocytes 2.3 thou/uL (1.20-3.40); #Monocytes 0.8 thou/uL (0.11-0.59); #Neutrophils 3.9 thou/uL (1.40-6.50); %Basophils 0.6 % (0.0-1.0); %Eosinophils 3.4 % (0.0-10.0); %Lymphocytes 31.6 % (21.0-51.0); %Monocytes 11.2 % (0.0-10.0); %Neutrophils 53.2 % (42.0-75.0); Mean Corpuscular HGB CONC 32.4 g/dL (32.0-36.0); Mean Corpuscular Hemoglobin 29.8 pg (27.0-31.0); Mean Corpuscular Volume 91.8 fL (78.0-98.0); Mean Platelet Volume 5.2 fL (7.4-10.4); Platelet Count 264 thou/uL (130-400); RBC Distribution Width 11.9 % (11.5-14.5); Red Blood Cell (RBC) Count 4.02 mill/uL (4.20-5.40); White Blood Cell (WBC) Count 7.4 thou/uL (4.8-10.8)
[2018-02-19 06:21] LABS: Anion Gap 11 mmol/L (10-20); BUN (Urea Nitrogen) 12 mg/dL (9.8-20.1); Calc. Creatinine Clearance 153 mL/min (70-130); Calcium 8.5 mg/dL (7.8-10.44); Carbon Dioxide 33 mmol/L (22-29); Chloride 103 mmol/L (98-107); Estimated GFR-MDRD Greater than 90; Glucose 88 mg/dL (70-105); Potassium 3.8 mmol/L (3.5-5.1); Sodium 143 mmol/L (136-145)
[2018-02-19] MEDS: Fluticasone Propionate Nasal Spray 16 gm Bottle NASAL SCH (08:50)
[2018-02-19] MEDS: Calcium Carbonate 500 MG TAB PO SCH (08:50)
[2018-02-19] MEDS: predniSONE 5 MG TAB PO SCH (08:51)
[2018-02-19] MEDS: Montelukast Sodium 10 mg Tablet PO SCH (08:51)
[2018-02-19] MEDS: Clopidogrel Bisulfate 75 MG TAB PO SCH (08:52)
[2018-02-19] MEDS: clonazePAM 0.5 MG TAB PO SCH ×2 (08:52→20:01)
[2018-02-19] MEDS: Furosemide 40 MG TAB PO SCH (08:52)
[2018-02-19] MEDS: Potassium Chloride 20 MEQ TAB PO SCH (08:52)
[2018-02-19] MEDS: Gabapentin 300 MG CAP PO SCH ×2 (08:52→20:01)
[2018-02-19] MEDS: Leflunomide 10 mg Tablet PO SCH (11:41)
--- NOTE | 2018-02-19 12:49 | ADD-PRG ---
DATE OF SERVICE: 02/19/2018 This is an addendum to the note of Dr. Unique Fontana. Ms. Abad underwent surgical I and D of her left inguinal abscess several days ago. She is looking an d feeling better. We will be able to transfer her to p.o. antibiotics in anticipation of discharge.
--- NOTE | 2018-02-19 15:46 | PQF ---
CLINICAL DOCUMENTATION IMPROVEMENT CLARIFICATION FORM: ICD-10 Updated PLEASE DO AN ADDENDUM TO THE PROGRESS NOTE WITH ANY DOCUMENTATION UPDATES OR ADDITIONS AND CARRY THROUGH TO DC SUMMARY. THANK YOU. DATE: 02/19/18; 02/20/18 ATTN: Dr. Fontana/ Attending Dr. Esquivel Please exercise your independent, professional judgment in responding to the clarification form. Clinical indicators are provided on the bottom of this form for your review Please check appropriate box(s): [ x] Chronic Respiratory Failure only [ ] with Hypoxia [ ] with Hypercapnia [ ] Other diagnosis [ ] Unable to determine In addition, please specify: Present on Admission (POA): [ x] Yes [ ] No [ ] Unable to determine For continuity of documentation, please document condition throughout progress notes and discharge summary. Thank You. CLINICAL INDICATORS - SIGNS / SYMPTOMS / LABS H&P 02/15: TEMP 99.4, PULSE 92, RESP. 18, O2 SATS 95% ON 3L NC PN 02/16: STEROID DEPENDENT COPD CONTINUED SUPPLEMENTAL 02, BASELINE HOME O2 IS 2-3L NC RISKS: H&P 02/15: COPD. SCLERODERMA. RHEUMATOID ARTHRITIS. GS CONSULT 02/17: COPD ON HOME OXYGEN. TREATMENT: CPOE 02/15: RESP: O2 TO KEEP SATS 92% CPOE 02/15: LASIX 40 MG PO Q AM Thank you, Jolly (This form is maintained as a part of the permanent medical record) 2015 [employer]. All Rights Reserved Jolly Joyner RN, BSN [email or web address] Office: [phone] [facility]
[2018-02-19] MEDS: METHadone HCl 10 MG TAB PO SCH (16:01)
[2018-02-19] MEDS: Pravastatin Sodium 40 MG TAB PO SCH (20:01)
[2018-02-19] MEDS: Escitalopram Oxalate 20 mg Tablet PO SCH (20:01)
--- NOTE | 2018-02-19 20:34 | PRG ---
DATE OF SERVICE: 02/19/2018 SUBJECTIVE: Lyn Abad is feeling better today. She is status post not I&D of a left groin abscess. The nurses have been doing wet to dry dressing changes and she feels confident that she can perform these independently at home. She is a little bit sore in the groin area, but on physical examinatio n, there is no induration or fluctuance in that area. The erythema surrounding her I&D site is much improved as is the induration. At that point, she is stable from a surgical standpoint and be discha rged home on oral antibiotic and dressing changes. She can follow up in my clinic in a week or two t imes.
[2018-02-20] MEDS: HYDROcodone/Acetaminophen 10/325 mg Tablet PO PRN ×2 (00:04→06:20)
[2018-02-20] MEDS: Clindamycin 150 MG CAP PO SCH ×2 (00:04→08:10)
--- NOTE | 2018-02-20 04:53 | PDOC.FM ---
- Subjective Subjective: Patient is doing well this morning. Reports pain is much improved and relieved with Ayr. She has Ayr at home. No other complaints. Voiding/stooling normally. - Objective MAR Reviewed: Yes Vital Signs & Weight: Vital Signs (12 hours) Temp Pulse Resp Pulse Ox 02/20/18 03:26 97 02/19/18 20:00 99.0 F 68 18 96 Weight Admit Weight 88.224 kg Weight 88.224 kg I&O: 02/18/18 02/19/18 02/20/18 06:59 06:59 06:59 Intake Total 1010 600 Balance 1010 600 Result Diagrams: 02/19/18 05:45 02/19/18 05:45 Phys Exam - Physical Examination Constitutional: NAD Inspiratory and expiratory wheezing in bilateral base Cardiovascular: RRR, no significant murmur Gastrointestinal: soft, non-tender, positive bowel sounds Musculoskeletal: pulses present Psychiatric: normal affect, A&O x 3 Skin: cap refill <2 seconds Deviation from normal: Dressing covering wound on groin. No surrounding erythema Dx/Plan (1) Abscess Code(s): L02.91 - CUTANEOUS ABSCESS, UNSPECIFIED Status: Acute (2) Cellulitis Code(s): L03.90 - CELLULITIS, UNSPECIFIED Status: Acute (3) Depression Code(s): F32.9 - MAJOR DEPRESSIVE DISORDER, SINGLE EPISODE, UNSPECIFIED Status : Chronic (4) Rheumatoid arthritis Code(s): M06.9 - RHEUMATOID ARTHRITIS, UNSPECIFIED Status: Chronic (5) Scleroderma Code(s): M34.9 - SYSTEMIC SCLEROSIS, UNSPECIFIED Status: Chronic (6) HLD (hyperlipidemia) Code(s): E78.5 - HYPERLIPIDEMIA, UNSPECIFIED Status: Chronic (7) COPD, severe Code(s): J44.9 - CHRONIC OBSTRUCTIVE PULMONARY DISEASE, UNSPECIFIED Status: Chronic (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 Daniel 02/17 - Plan for pt to perform dressing changes at home. CM able to work with wound care to provide supplies. Nursing has watched patient perform dressing change, was done appropriately - Continue Clindamycin, Vanc & Zosyn d/c'ed 02/18 - PO hydration Steroid dependent COPD - Continue supplemental O2, baseline home O2 is 2-3 L NC - Continue home prednisone Scleroderma - Home meds RA - Home meds - on daily opioids Jono-Danlos - Home meds pAfib - Continue to monitor routine vitals HTN - Home meds Hx of Migraines - Home meds Depression - continue home medications. Dispo: likely today if patient is stable
[2018-02-20] MEDS: Fluticasone Propionate Nasal Spray 16 gm Bottle NASAL SCH (08:08)
[2018-02-20] MEDS: Leflunomide 10 mg Tablet PO SCH (08:09)
[2018-02-20] MEDS: Montelukast Sodium 10 mg Tablet PO SCH (08:10)
[2018-02-20] MEDS: Potassium Chloride 20 MEQ TAB PO SCH (08:10)
[2018-02-20] MEDS: Furosemide 40 MG TAB PO SCH (08:10)
[2018-02-20] MEDS: predniSONE 5 MG TAB PO SCH (08:10)
[2018-02-20] MEDS: clonazePAM 0.5 MG TAB PO SCH (08:10)
[2018-02-20] MEDS: Gabapentin 300 MG CAP PO SCH (08:11)
[2018-02-20] MEDS: Clopidogrel Bisulfate 75 MG TAB PO SCH (08:11)
[2018-02-20] MEDS: Calcium Carbonate 500 MG TAB PO SCH (08:11)
--- NOTE | 2018-02-20 11:18 | PRG ---
DATE OF SERVICE: 02/20/2018 SUBJECTIVE: Ms. Abad looks and feels much better this morning. The area of her cellulitis and absce ss in the left side of the lower abdomen and pelvis is continuing to look improve. She will be disch arged today on oral antibiotics and wound care at home.
[2018-02-20 11:37] VITALS: BP 107/72; TEMP 98.6
--- NOTE | 2018-02-22 01:52 | DIS-2 ---
DATE OF ADMISSION: 02/15/2018 DATE OF DISCHARGE: 02/20/2018 RESIDENT: Unique Fontana, PGY1 ADMITTING ATTENDING: Omar Westbrook MD DISCHARGE ATTENDING: Stanislaw Esquivel MD CONSULTS: General Surgery. PROCEDURES: I&D. PRIMARY DIAGNOSES: 1. Abscess. 2. Cellulitis. SECONDARY DIAGNOSES: 1. Depression. 2. Rheumatoid arthritis. 3. Scleroderma. 4. Hyperlipidemia. 5. Chronic obstructive pulmonary disease, severe. 6. Jono-Danlos disease. 7. Hypertension. 8. Paroxysmal atrial fibrillation. 9. Migraines. DISCHARGE MEDICATIONS: 1. Clindamycin 300 mg t.i.d. for 10 days. 2. Calcium carbonate 1000 mg daily. 3. Vitamin D3 of 8000 units daily. 4. Clonazepam 0.5 mg b.i.d. 5. Clopidogrel 75 mg daily. 6. Escitalopram oxalate 20 mg q.p.m. 7. Fluticasone 2 sprays each naris daily. 8. Furosemide 40 mg q.a.m. and 1600. 9. Gabapentin 300 b.i.d. 10. Irving 10/325 q.6 hours. 11. Arava 20 mg daily. 12. Methadone 30 mg at 1600. 13. Myrbetriq 50 mg daily. 14. Montelukast 10 mg daily. 15. Zofran 4 mg sublingual q.6 hours p.r.n. 16. Potassium chloride 20 mEq daily. 17. Pravastatin sodium 40 mg q.p.m. 18. Prednisone 5 mg daily. 19. Atelvia 35 mg q.7 days. 20. Sumatriptan 25 mg q.4 hours p.r.n. 21. Ventolin 2 puffs inhaled q.4 hours p.r.n. HISTORY OF PRESENT ILLNESS AND HOSPITAL COURSE: A 52-year-old female with an extensive past medical history who presented to the [facility] for swelling, redness and pain to the left groin area. I&D was performed in the outside office with wound cultures taken. She was directly admitted to the hospital. Direct admission was due to concern of immunocompromised patient with multiple comorbidities. She was started on vancomycin and Rocephin. She was taken to the OR for I&D with Dr. Daniel on . She discharged on clindamycin. 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 Nursing staff watched patient perform dressing prior to discharge. For her other chronic conditions, steroid dependent COPD, scleroderma, rheumatoid arthritis, Jono-Danlos, atrial fibrillation, hypertension, migraines, depression. All of her home meds were continued in the hospital. Conditions were stable throughout stay. She was discharged on 2 liters of oxygen NC, this is her baseline. DISPOSITION: Stable. DISCHARGE INSTRUCTIONS: 1. Location: Home. 2. Diet: Regular. 3. Activity: No restrictions. 4. Followup: In [facility] with PCP within 10 days. SUSANNAH
--- NOTE | 2018-02-24 11:42 | OP ---
DATE OF PROCEDURE: 02/17/2018 PROCEDURE: Left groin incision and debridement PREOPERATIVE DIAGNOSIS: Left groin abscess. POSTOPERATIVE DIAGNOSIS: Left groin abscess. HISTORY: Ms. Abad is a 52-year-old woman with a left groin abscess, which has been I and D'd in the clinic, but continues to drain and be painful and indurated. The recommendation was made to proceed to the operating room for incision and debridement. DESCRIPTION OF PROCEDURE: After informed consent was obtained and appropriate preoperative antibioti cs continued, the patient was taken to the operating room where she was placed in the supine position and general anesthesia was administered. She was prepped and draped in standard sterile fashion and local anesthesia infused to the skin and subcutaneous tissues overlying the left groin I and D site. The wound was probed and the patient was found to have a superficial chronic abscess cavity extendi ng both superiorly and inferiorly. This was unroofed and debrided. The skin overlying the chronic a bscess cavity was very thin and tenuous, so this was excised to allow adequate packing of the wound. The surrounding tissues were indurated, but there was no expressible pus and no tunneling. The woun d was copiously irrigated and hemostasis verified. A swab of the chronic abscess cavity was sent upo n opening, but no brittany pus was encountered. The wound was then packed with wet-to-dry dressings and the patient was taken to recovery in good condition. Estimated blood loss was minimal. There were no complications. SPECIMEN: Left groin abscess for Gram stain and culture.
== END 2018-02-20 11:45 | disposition home or self-care (01) | DRG 580 ==
LOC: T4-A 16:11
PROVIDERS: ADMIT Family Medicine; ATTEND Family Medicine
PROC: 05H633Z Insertion of Infusion Device into Left Subclavian Vein, Percutaneous Approach (ICD-10-PCS; principal; 2018-02-16)
PROC: 0J9C0ZZ Drainage of Pelvic Region Subcutaneous Tissue and Fascia, Open Approach (ICD-10-PCS; 2018-02-17)
DX: L02.214 Cutaneous abscess of groin (principal); Q79.6 Ehlers-Danlos syndromes; J96.10 Chronic respiratory failure, unspecified whether with hypoxia or hypercapnia; L03.314 Cellulitis of groin; M34.9 Systemic sclerosis, unspecified; M06.9 Rheumatoid arthritis, unspecified; J44.9 Chronic obstructive pulmonary disease, unspecified; I48.0 Paroxysmal atrial fibrillation; G89.29 Other chronic pain; I11.0 Hypertensive heart disease with heart failure; I50.9 Heart failure, unspecified; Z66 Do not resuscitate; M81.0 Age-related osteoporosis without current pathological fracture; E78.5 Hyperlipidemia, unspecified; E55.9 Vitamin D deficiency, unspecified; G47.30 Sleep apnea, unspecified; F41.8 Other specified anxiety disorders; Z99.81 Dependence on supplemental oxygen; Z79.02 Long term (current) use of antithrombotics/antiplatelets; Z79.52 Long term (current) use of systemic steroids; Z79.891 Long term (current) use of opiate analgesic; Z79.899 Other long term (current) drug therapy; Z88.0 Allergy status to penicillin; Z88.2 Allergy status to sulfonamides; Z88.8 Allergy status to other drugs, medicaments and biological substances
CPT/HCPCS: 36415; 71045; 76999; 80048; 80202; 82805; 85025; 87070; 87205; A4216; J0696; J1720; J2001; J2270; J2405; J2704; J3010; J3370; J7050; Q0162

== ENCOUNTER 2018-03-06 09:17 | Emergency (ER) | payer MEDICARE ==
[2018-03-06 11:20] LABS: #Lymphocytes 1.1 thou/uL (1.20-3.40); #Monocytes 0.8 thou/uL (0.11-0.59); #Neutrophils 9.4 thou/uL (1.40-6.50); %Basophils 0.2 % (0.0-1.0); %Eosinophils 0.4 % (0.0-10.0); %Lymphocytes 9.7 % (21.0-51.0); %Monocytes 7.2 % (0.0-10.0); %Neutrophils 82.4 % (42.0-75.0); Hemoglobin 13.8 g/dL (12.0-16.0); Mean Corpuscular HGB CONC 32.8 g/dL (32.0-36.0); Mean Corpuscular Hemoglobin 29.1 pg (27.0-31.0); Mean Corpuscular Volume 88.8 fL (78.0-98.0); Mean Platelet Volume 5.8 fL (7.4-10.4); Platelet Count 341 thou/uL (130-400); RBC Distribution Width 11.9 % (11.5-14.5); Red Blood Cell (RBC) Count 4.73 mill/uL (4.20-5.40); White Blood Cell (WBC) Count 11.4 thou/uL (4.8-10.8)
[2018-03-06] MEDS ORDERED: Morphine 4 MG/ML VIAL ONE (11:23)
[2018-03-06] MEDS ORDERED: Ondansetron HCl/PF 4 MG/2 ML Vial ONE (11:23)
[2018-03-06 11:49] LABS: ALT (SGPT) 14 U/L (8-55); AST (SGOT) 17 U/L (5-34); Alkaline Phosphatase 87 U/L (40-150); Anion Gap 14 mmol/L (10-20); BUN (Urea Nitrogen) 13 mg/dL (9.8-20.1); Bilirubin, Total 0.5 mg/dL (0.2-1.2); CK (CPK) 40 U/L (29-168); Calc. Creatinine Clearance 0 mL/min (70-130); Calcium 8.7 mg/dL (7.8-10.44); Carbon Dioxide 26 mmol/L (22-29); Chloride 102 mmol/L (98-107); Estimated GFR-MDRD Greater than 90; Globulin 3.1 g/dL (2.4-3.5); Glucose 92 mg/dL (70-105); Lipase 4 U/L (8-78); Potassium 4.3 mmol/L (3.5-5.1); Protein, Total 7.1 g/dL (6.0-8.3); Sodium 138 mmol/L (136-145)
[2018-03-06 11:52] LABS: CKMB 1.2 ng/mL (0-6.6); Troponin I Less than 0.010 ng/mL (< 0.028)
[2018-03-06 12:32] LABS: Bilirubin Moderate (Negative); Blood, Urine Moderate (Negative); Clarity CLOUDY (Clear); Glucose, Urine (Dipstick) Negative (Negative); Leukocyte Small (Negative); Nitrite Negative (Negative); Protein, Urine (Dipstick) Trace mg/dL (Neg-Trace); Specific Gravity, Urine 1.032 (1.002-1.036); Urobilinogen 0.2 mg/dL (0.2-1.0); pH, Urine 5.5 (5.0-9.0)
[2018-03-06 12:34] LABS: Bacteria/HPF None Seen HPF (None Seen)
[2018-03-06 12:47] LABS: Pathc Cast-AUWi Flag 4.21 (0-2.49)
--- NOTE | 2018-03-06 12:52 | CT ---
CT ABDOMEN AND PELVIS NONCONTRAST: History: Bilateral flank pain. FINDINGS: Each renal collecting system, ureter, and urinary bladder are decompressed. A 0.3 cm calculus at the inferior pole right kidney is slightly larger than on the previous study. Lack of contrast limits evaluation for other abnormalities. Linear scarring at the right posterior ri ght lung base. Heterogeneous density of the liver and fatty infiltration centrally. A subtle ill-defi randy 1.1 cm area of decreased density at the anterior dome of the medial segment left liver lobe. No e vidence of bowel obstruction. IMPRESSION: 1. Nonobstructing 3 mm right renal calculus. 2. Probable fatty infiltration of the liver. Subtle ill-defined low density lesion within the medial segment left liver lobe dome warrants further evaluation. On a non-emergent basis, please consider de dicated CT liver with and without IV contrast for better characterization. POS: BEE
[2018-03-06 13:05] LABS: Hyaline Casts/LPF 0-3 HYALINE CAST LPF (0-3 Hyaline); Other Casts/LPF None Seen LPF (0-3 Hyaline)
[2018-03-06 13:06] LABS: Renal Epithelial None Seen HPF (0-3)
--- NOTE | 2018-03-10 10:46 | EKG ---
Test Reason : ABD PAIN Blood Pressure : / mmHG Vent. Rate : 097 BPM Atrial Rate : 097 BPM P-R Int : 162 ms QRS Dur : 072 ms QT Int : 340 ms P-R-T Axes : 057 008 025 degrees QTc Int : 431 ms Normal sinus rhythm Abnormal ECG Confirmed by SANDEEP LEONARD, MANA Henriquez ([id number]), primer expeditor and drier LUCY GUEVARA ([id number]) on 03/10/2018 10:46:06 AM Referred By: Confirmed By:MANA HOPKINS MD
== END 2018-03-06 13:53 | disposition home or self-care (01) ==
LOC: ERS 09:17
DX: R11.2 Nausea with vomiting, unspecified (principal); R10.13 Epigastric pain; I11.0 Hypertensive heart disease with heart failure; I50.9 Heart failure, unspecified; F32.9 Major depressive disorder, single episode, unspecified
CPT/HCPCS: 74176; 80053; 81003; 81015; 82550; 82553; 83690; 84484; 85025; 93005; 96361; 96374; 96375; J2270; J2405

== ENCOUNTER 2018-04-18 10:24 | Outpatient (CLI) | payer MEDICARE ==
--- NOTE | 2018-04-18 13:37 | MRI ---
MRI ABDOMEN WITHOUT CONTRAST: HISTORY: Probable liver lesion on CT scan dated 03/06/18. FINDINGS: Correlation was made with the noncontrasted CT scan of 03/06/18. There is a geographic are of signal loss in the liver predominantly in the left lobe on the out-of-ph ase images consistent with fatty infiltration. The questionable focal lesion on the CT scan appears to be part of the fatty infiltration. The patient is post cholecystectomy. The distal common duct m easures 12 mm in diameter. There is elevation of the right hemidiaphragm. The spleen, pancreas, adr enal glands, and left kidney appear normal. There is a tiny cortical cyst arising from the posterior cortex of the right kidney. No free fluid or lymphadenopathy is seen. There is no evidence of aneu rysmal dilatation of the abdominal aorta. Bone marrow signal is normal. IMPRESSION: 1. Fatty liver. 2. Status post cholecystectomy. 3. Tiny right renal cyst. 4. Dilated common bile duct likely due to reservoir effect from cholecystectomy. POS: BEE
== END 2018-04-18 10:25 | disposition home or self-care (01) ==
LOC: BICMRI 10:24
PROVIDERS: ATTEND Student in an Organized Health Care Education/Training Program
DX: K76.9 Liver disease, unspecified (principal); N28.1 Cyst of kidney, acquired; K76.0 Fatty (change of) liver, not elsewhere classified; Z90.49 Acquired absence of other specified parts of digestive tract
CPT/HCPCS: 74181

== ENCOUNTER 2018-06-12 16:07 | Outpatient (CLI) | payer MEDICARE ==
--- NOTE | 2018-06-12 18:09 | RAD ---
LEFT HIP TWO VIEWS: 06/12/18 HISTORY: Pain. COMPARISON: None. FINDINGS: Mild loss of joint space height. Contour of the femoral head is maintained. No fracture. IMPRESSION: Mild loss of joint space height. POS: BEE
== END 2018-06-12 16:08 | disposition home or self-care (01) ==
LOC: BICRAD 16:07
PROVIDERS: ATTEND Internal Medicine Rheumatology
DX: M25.552 Pain in left hip (principal)

== ENCOUNTER 2018-07-05 12:04 | Day surgery (SDC) | payer MEDICARE ==
[2018-07-04 09:22] VITALS: BMI 29.7
[2018-07-05] MEDS ORDERED: PHENYLEPHRINE-NS 100 MCG/ML 10 ML SYRINGE ONE (13:31)
[2018-07-05] MEDS ORDERED: Lidocaine 1% PF 5 ML VIAL ONE (13:31)
[2018-07-05] MEDS ORDERED: PROPOFOL 200 MG/20 ML VIAL ONE (13:31)
--- NOTE | 2018-07-05 21:37 | OP ---
DATE OF PROCEDURE: 07/05/2018 TITLE OF PROCEDURE: EGD with biopsy and Manuel dilation. PREPROCEDURE DIAGNOSES: 1. Dysphagia. 2. Reflux. 3. Unexplained diarrhea. POSTPROCEDURE DIAGNOSES: 1. Exam to second portion of duodenum. 2. Small hiatal hernia. 3. No evidence of esophageal stenosis or stricture, esophagus empirically dilated with 54-Hungarian Manuel bougie. 4. Normal stomach. 5. Normal duodenum, biopsied for histology. PROCEDURE IN DETAIL: Written informed consent was obtained. The patient was brought to the endoscopy suite. Total intravenous anesthesia was provided by Mr. Felix Bhat CRNA. The patient was placed in the left lateral decubitus position. A bite-block was inserted into the mouth. A Pentax video therapeutic gastroscope was introduced into the oral cavity and the esophagus was carefully intubated. The gastroscope was advanced under direct visualization to the second portion of the duodenum. Endoscopic findings revealed a small sliding hiatal hernia about 1 to 2 cm in length. There was no evidence of esophageal erosion or ulcer. The lumen was widely patent and demonstrated no stricture or stenosis. The esophagus was empirically dilated with a 54-Hungarian Manuel bougie with no resistance. The gastroscope was reintroduced to examine the dilated site and there was no evidence of esophageal bleeding, tear, or perforation. The examination of the stomach and duodenum including a retroflex view of the cardia and fundus revealed no significant abnormalities. Biopsies were obtained in the proximal duodenum for histology given the patient's history of unexplained diarrhea. The stomach was decompressed as the endoscope was removed from the patient. There were no immediate complications. She was then repositioned for the colonoscopy. RECOMMENDATIONS: 1. Await biopsy results. 2. Ask the patient to call me in 1 week for biopsy results. 3. Resume previous medications. 4. Soft diet and push liquids. 5. Continue Prilosec 20 mg q.a.m. 6. Follow up in the GI Clinic in 6 weeks. Job ID: [id number]
--- NOTE | 2018-07-05 21:43 | OP ---
DATE OF PROCEDURE: 07/05/2018 TITLE OF PROCEDURE: Colonoscopy. PREPROCEDURE DIAGNOSES: 1. Left lower quadrant abdominal pain. 2. Change in bowel function. POSTPROCEDURE DIAGNOSES: 1. Exam to cecum; fair bowel preparation. 2. No obvious colitis or polyp. 3. Mild diverticulosis coli, left colon. 4. Small internal hemorrhoids. 5. Diffusely tortuous colon. 6. Otherwise normal colonoscopy. PROCEDURE IN DETAIL: Written informed consent was obtained. Upon completion of the EGD, the patient was repositioned for the colonoscopy. A digital rectal exam was performed, which revealed a small perianal tag. A Pentax video colonoscope was then inserted through the anal canal and advanced under direct visualization to the cecum. Position in the cecum was verified by clear identification of the ileocecal valve. The quality of the bowel preparation was fair. A moderate amount of brown liquid stool pooled in multiple areas of the colon, somewhat precluding adequate visualization for polyps less than 6 mm in size. The colonic mucosa appeared intact without polyp or ulcer. There was no obvious inflammation. Occasional diverticular orifices were noted in the left colon. There was no evidence of diverticular bleeding. A retroflexed exam in the rectum demonstrated small internal hemorrhoids. The colon was then decompressed as the colonoscope was removed from the patient. She was transferred to the Day Stay Surgery area for postprocedure monitoring. There were no immediate complications. RECOMMENDATIONS: 1. Initiate fiber supplementation, Metamucil 1 to 2 teaspoons in 8 ounces of water daily. 2. Levsin sublingual 0.125 mg p.o. b.i.d. p.r.n. cramping abdominal pain. 3. Repeat colonoscopy in 10 years for purposes of colon cancer screening. 4. Follow up in GI clinic in about 6 weeks. Job ID: [id number]
== END 2018-07-05 16:00 | disposition home or self-care (01) ==
LOC: SDC 12:04
PROVIDERS: ATTEND Internal Medicine Gastroenterology
PROC: 0DJD8ZZ Inspection of Lower Intestinal Tract, Via Natural or Artificial Opening Endoscopic (ICD-10-PCS; principal; 2018-07-05)
PROC: 0DB98ZX Excision of Duodenum, Via Natural or Artificial Opening Endoscopic, Diagnostic (ICD-10-PCS; 2018-07-05)
PROC: 0D757ZZ Dilation of Esophagus, Via Natural or Artificial Opening (ICD-10-PCS; 2018-07-05)
DX: K57.30 Diverticulosis of large intestine without perforation or abscess without bleeding (principal); K64.8 Other hemorrhoids; K44.9 Diaphragmatic hernia without obstruction or gangrene; K21.9 Gastro-esophageal reflux disease without esophagitis; Q79.6 Ehlers-Danlos syndromes; R19.7 Diarrhea, unspecified; R10.32 Left lower quadrant pain; I48.91 Unspecified atrial fibrillation; J44.9 Chronic obstructive pulmonary disease, unspecified; I11.0 Hypertensive heart disease with heart failure; I50.9 Heart failure, unspecified; M06.9 Rheumatoid arthritis, unspecified; M34.9 Systemic sclerosis, unspecified; F41.9 Anxiety disorder, unspecified; M19.90 Unspecified osteoarthritis, unspecified site; F32.9 Major depressive disorder, single episode, unspecified; J96.10 Chronic respiratory failure, unspecified whether with hypoxia or hypercapnia; Z79.02 Long term (current) use of antithrombotics/antiplatelets; Z79.51 Long term (current) use of inhaled steroids; Z79.52 Long term (current) use of systemic steroids; Z79.83 Long term (current) use of bisphosphonates; Z79.899 Other long term (current) drug therapy; Z88.0 Allergy status to penicillin; Z88.2 Allergy status to sulfonamides; Z88.6 Allergy status to analgesic agent; Z91.013 Allergy to seafood; Z91.041 Radiographic dye allergy status
CPT/HCPCS: 88305

== ENCOUNTER 2018-07-06 10:34 | Outpatient (CLI) | payer MEDICARE ==
--- NOTE | 2018-07-06 11:03 | RAD ---
CERVICAL SPINE ONE VIEW: Date: 07-06-18 History: 52-year-old female with pain in throat, neck pain. FINDINGS: Single AP view of the cervical spine demonstrates cervical spondylosis. No evidence for abnormal soft tissue gas seen on this AP view of the neck and cervical spine. Subglottic trachea appears unremarka ble. IMPRESSION: Unremarkable AP view of the cervical spine and neck. POS: [facility]
--- NOTE | 2018-07-06 11:05 | RAD ---
PA AND LATERAL CHEST: History: Chest pain following procedure. FINDINGS: Comparison is made with exam of 02-15-18. There is continued elevation of the right hemidiaphragm. The heart size is normal. No focal areas of consolidation, pneumothoraces or pleural effusions are seen. There are degenerative changes in the sp ine. There are post op changes of cholecystectomy. IMPRESSION: No radiographic evidence of acute cardiopulmonary process. POS: [facility]
== END 2018-07-06 10:35 | disposition home or self-care (01) ==
LOC: BICRAD 10:34
PROVIDERS: ATTEND Internal Medicine Gastroenterology
DX: G89.18 Other acute postprocedural pain (principal); R07.0 Pain in throat; M54.2 Cervicalgia
CPT/HCPCS: 71046; 72020

== ENCOUNTER 2018-10-23 14:07 | Outpatient (CLI) | payer MEDICARE ==
--- NOTE | 2018-10-23 16:51 | MRI ---
MR OF THE RIGHT HIP WITHOUT IV CONTRAST: 10/23/18 INDICATION: History of right hip pain for 25 to 30 years. COMPARISON: None. FINDINGS: No bone marrow signal abnormality is evident to suggest a fracture. No paralabral cyst is evident. No joint effusion is evident. The right gluteus minimus and medius tendons are intact. No trochanteric or iliopsoas bursitis is evident. No enlarged lymph nodes are noted. The right hamstring origins and right rectus femoris origin appears within normal limits. No patholog ically enlarged lymph nodes are grossly evident. There is a fat containing right inguinal hernia. The visualized intrapelvic contents appear within normal limits. No definite free fluid is evident. IMPRESSION: No MR explanation for the patient's long-term right hip pain. POS: [facility]
--- NOTE | 2018-10-23 16:54 | MRI ---
MR OF THE LEFT HIP WITHOUT CONTRAST: 10/23/18 INDICATION: Left hip pain ongoing for 25 to 30 years. COMPARISON: Left hip radiograph dated 06/12/18. FINDINGS: There is mild degenerative arthrosis of the left hip. No paralabral cyst is grossly evident. Left glu teus minimus and medius tendons appear intact. No trochanteric or iliopsoas bursitis is evident. The left hamstring origin and left rectus femoris appears within normal limits. The visualized intrap elvic contents are unremarkable appearing. IMPRESSION: Mild degenerative arthrosis of the left hip. POS: [facility]
== END 2018-10-23 14:08 | disposition home or self-care (01) ==
LOC: BICMRI 14:07
PROVIDERS: ATTEND Internal Medicine Rheumatology
DX: M25.551 Pain in right hip (principal); M25.552 Pain in left hip; M16.12 Unilateral primary osteoarthritis, left hip

== ENCOUNTER 2019-04-22 09:08 | Outpatient (CLI) | payer MEDICARE ==
--- NOTE | 2019-04-22 09:53 | CT ---
EXAM: CT Stone Protocol PROVIDED CLINICAL HISTORY: Hematuria COMPARISON: 03/06/2018 FINDINGS: The visualized lung bases are free of significant opacity. Scarring is again noted at the right lung base. There is a 4 mm nonobstructing inferior pole right renal calculus. No additional urinary tract calcul i are evident. No evidence for hydronephrosis. The solid abdominal organs are suboptimally evaluated in the absence of IV contrast material but demo nstrate an otherwise unremarkable unenhanced CT appearance. There is prominence of the common duct measuring up to 1.2 cm, similar to the prior examination and presumably on the basis of postcholecyst ectomy status. There is no bowel dilatation, inflammatory fat stranding, free fluid or lymph node enlargement appare nt. Moderate colonic fecal retention. The osseous structures demonstrate no concerning lytic or blastic lesions. IMPRESSION: 1. 4 mm nonobstructing inferior pole right renal calculus. 2. Dilated common duct, similar to prior and potentially on the basis of postcholecystectomy status. Correlation with laboratory values to exclude biliary obstructive change is recommended.
== END 2019-04-22 09:09 | disposition home or self-care (01) ==
LOC: CT 09:08
PROVIDERS: ATTEND Family Medicine
DX: R31.9 Hematuria, unspecified (principal); N20.0 Calculus of kidney; K83.9 Disease of biliary tract, unspecified; Z90.49 Acquired absence of other specified parts of digestive tract
CPT/HCPCS: 74176

== ENCOUNTER 2019-05-09 14:06 | Outpatient (CLI) | payer MEDICARE ==
--- NOTE | 2019-05-09 15:30 | BD ---
BONE DENSITOMETRY USING DEXA: Date: 05/09/19 HISTORY: Postmenopausal screening for osteoporosis. FINDINGS: Lumbar Spine: BMD (g/cm2) L1 0.879 T-Score: -1.0 Z-Score: -0.2 L2 1.023 T-Score: 0.0 Z-Score: 0.9 L3 1.092 T-Score: 0.1 Z-Score: 1.1 L4 1.040 T-Score: -0.2 Z-Score: 0.8 L1-L4 1.012 T-Score: -0.3 Z-Score: 0.6 Femoral Neck: 0.528 T-Score: -2.9 Z-Score: -1.9 Total Femur: 0.731 T-Score: -1.7 Z-Score: -1.1 The 10 year fracture risk for a major osteoporotic fracture is 33% and for a hip fracture is 11%. IMPRESSION: Osteoporosis. POS: [facility]
== END 2019-05-09 14:07 | disposition home or self-care (01) ==
LOC: BICMAMMO 14:06
PROVIDERS: ATTEND Internal Medicine Rheumatology
DX: M80.00XA Age-related osteoporosis with current pathological fracture, unspecified site, initial encounter for fracture (principal); M85.88 Other specified disorders of bone density and structure, other site
CPT/HCPCS: 77080

== ENCOUNTER 2019-06-13 10:42 | Outpatient (CLI) | payer MEDICARE ==
--- NOTE | 2019-06-13 19:48 | MRI ---
MRI BRAIN NONCONTRAST: DATE: 06/13/2019 HISTORY: 53-year-old female with syncope and essential tremor. TECHNIQUE: Although this was ordered as an MRI with and without contrast, the patient wished to have only a nonc ontrast brain MRI. FINDINGS: The ventricles are normal in size and configuration. There is no major intra-axial signal abnormality , restricted diffusion, midline shift or any other mass effect, recent intra-axial hemorrhage, or extra-axial fluid collection. There is hyperostosis frontalis interna. There is mild diffuse brain pa renchymal volume loss. IMPRESSION: 1. Mild involutional changes. 2. Otherwise negative noncontrast brain MRI.
== END 2019-06-13 10:43 | disposition home or self-care (01) ==
LOC: SCSMRI 10:42
PROVIDERS: ATTEND Psychiatry & Neurology Neurology
DX: R55 Syncope and collapse (principal); G25.0 Essential tremor
CPT/HCPCS: 36415; 70551; 82607; 84207; 84425

== ENCOUNTER 2019-07-11 15:47 | Emergency (ER) | payer MEDICARE ==
[2019-07-11] MEDS ORDERED: Acetaminophen 500 MG TAB ONE (16:30)
--- NOTE | 2019-07-11 16:39 | RAD ---
XR Shoulder Lt 3 View STANDARD: 07/11/2019 4:00 PM CLINICAL INDICATION: Fall with left shoulder pain. COMPARISON: None. FINDINGS: Bones: No acute fracture. Glenohumeral joint: There is mild left glenohumeral joint osteoarthrosis. AC joint: There is mild left AC joint osteoarthrosis. Visualized lung: Clear. Soft tissues: Within normal limits. IMPRESSION: No acute osseous abnormality.
--- NOTE | 2019-07-11 16:39 | RAD ---
XR Elbow Lt 2 View INDICATION: Fall with elbow pain FINDINGS: Bones: No acute fracture or subluxation is evident.. Joints: No joint capsular distention. Radiocapitellar alignment appears within normal limits. Soft tissues: No radiopaque foreign body is evident. IMPRESSION: No acute osseous abnormality.
--- NOTE | 2019-07-11 16:39 | RAD ---
XR Hip Lt 2-3 View INDICATION: Fall with left hip pain COMPARISON: None FINDINGS: Bones: No acute osseous abnormality. Bone mineralization appears within normal limits. Hip joint: There is mild left hip osteoarthrosis. SI joints and symphysis pubis: Radiographically normal. Intrapelvic contents: Visualized bowel gas pattern is within normal limits. Surrounding soft tissues: Radiographically normal. IMPRESSION: 1. No acute osseous abnormality.
--- NOTE | 2019-07-11 16:55 | CT ---
CT BRAIN WITHOUT CONTRAST: HISTORY: Fall, headache, no loss of consciousness FINDINGS: No evidence of acute infarct, hemorrhage, midline shift or abnormal extra-axial fluid collections is seen. The ventricular size is appropriate and the basilar cisterns are patent. The bony calvarium is intact. The visualized paranasal sinuses and mastoid air cells are well aerated. There is hyperost osis frontalis interna. IMPRESSION: No CT evidence of acute intracranial process.
--- NOTE | 2019-07-11 17:02 | CT ---
CT CERVICAL SPINE WITH CORONAL AND SAGITTAL REFORMATIONS AND NO IV CONTRAST: HISTORY: Fall, neck pain FINDINGS: Degenerative changes are present most prominent at C5-6 level. No fracture, subluxation or facet malalignment is identified. No prevertebral soft tissue swelling is apparent. The visualized lung apices are unremarkable. There is heterogeneity in the appearance of the bones which may be due to osteoporosis, metastatic di sease or multiple myeloma.
== END 2019-07-11 17:39 | disposition home or self-care (01) ==
LOC: ERS 15:47
DX: S16.1XXA Strain of muscle, fascia and tendon at neck level, initial encounter (principal); M25.512 Pain in left shoulder; M25.552 Pain in left hip; I11.0 Hypertensive heart disease with heart failure; I50.9 Heart failure, unspecified; E78.5 Hyperlipidemia, unspecified; F32.9 Major depressive disorder, single episode, unspecified; F41.9 Anxiety disorder, unspecified; W19.XXXA Unspecified fall, initial encounter
CPT/HCPCS: 70450; 72126

== ENCOUNTER 2019-10-19 15:38 | Inpatient (IN) | payer MEDICARE, OTHER ==
[2019-10-19 16:15] LABS: Bacteria/HPF 4+ HPF (None Seen); Bilirubin Negative (Negative); Blood, Urine Negative (Negative); Clarity Turbid (Clear); Glucose, Urine (Dipstick) Normal (Negative); Leukocyte 75 Leu/uL (Negative); Nitrite Negative (Negative); Protein, Urine (Dipstick) 20 mg/dL (Neg-Trace); RBC/HPF 0-3 HPF (0-3); Urobilinogen 3 mg/dL (Less than 2)
[2019-10-19 16:20] LABS: #Lymphocytes 0.6 thou/uL (1.20-3.40); #Monocytes 0.4 thou/uL (0.11-0.59); %Basophils 0.1 % (0.0-1.0); %Eosinophils 0.2 % (0.0-10.0); %Lymphocytes 6.1 % (21.0-51.0); %Monocytes 3.5 % (0.0-10.0); %Neutrophils 90.1 % (42.0-75.0); Mean Corpuscular HGB CONC 33.7 g/dL (32.0-36.0); Mean Corpuscular Hemoglobin 30.6 pg (27.0-31.0); Mean Corpuscular Volume 90.9 fL (78.0-98.0); Mean Platelet Volume 6.5 fL (7.4-10.4); Platelet Count 356 thou/uL (130-400); RBC Distribution Width 12.4 % (11.5-14.5); Red Blood Cell (RBC) Count 4.57 mill/uL (4.20-5.40)
[2019-10-19 16:37] LABS: ALT (SGPT) 19 U/L (8-55); AST (SGOT) 39 U/L (5-34); Alkaline Phosphatase 65 U/L (40-110); Anion Gap 21 mmol/L (10-20); BUN (Urea Nitrogen) 12 mg/dL (9.8-20.1); Bilirubin, Total 0.3 mg/dL (0.2-1.2); Calc. Creatinine Clearance 0 mL/min (70-130); Calcium 9.2 mg/dL (7.8-10.44); Carbon Dioxide 26 mmol/L (22-29); Chloride 100 mmol/L (98-107); Estimated GFR-MDRD 73; Globulin 3.3 g/dL (2.4-3.5); Glucose 175 mg/dL (70-105); Potassium 4.5 mmol/L (3.5-5.1); Protein, Total 7.3 g/dL (6.0-8.3); Sodium 142 mmol/L (136-145)
[2019-10-19] MEDS ORDERED: Ondansetron PF 4 MG/2 ML Vial ONE ×2 (16:40→19:11)
--- NOTE | 2019-10-19 17:16 | CT ---
CT Brain WO Con History: Trauma. Found on floor Comparison: CT brain June 2019 Findings: No acute hemorrhage or infarct. No midline shift or mass effect. Ventricular size and extra -axial CSF spaces are normal. 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 Paranasal sinuses and mastoids are relatively clear. Impression: No acute posttraumatic intracranial sequelae.
--- NOTE | 2019-10-19 17:21 | CT ---
CT Cervical Spine WO Con History: Trauma Comparison: CT cervical spine June 2019 Findings: The odontoid process is intact. The occipital condyles are intact. No acute rheumatic facet joint widening. No acute displaced fracture of the cervical spine. The background marrow trabecula of the medullary cavity appears very heterogeneous likely sequelae of loss of bone mineral density and less likely metastatic disease or myeloma. Appears be some fibrosis in the right upper lobe. Paraspinal soft tissues are unremarkable. Impression: No acute fracture the cervical spine.
--- NOTE | 2019-10-19 17:23 | CT ---
CT CHEST WITHOUT CONTRAST CLINICAL INDICATION: Cough and hypoxia. Tachycardia and hypotensive. COMPARISON: None FINDINGS: Aorta: Limited evaluation due to lack of intravenous contrast, the abdominal aorta is normal in calib er. Lungs: There is prominent elevation of the right hemidiaphragm with linear and parenchymal densities present at the right lung base most likely attributable to atelectasis. Developing pneumonia or aspiration pneumonitis right lower lobe cannot be entirely excluded. Minimal dependent atelectasis is seen on the left. No pulmonary nodule or pleural effusion is identified. Linear scar versus atelectasis is seen in the right upper lobe. Mediastinum: Limited evaluation without IV contrast, but no enlarged lymph nodes are seen Osseous structures: Degenerative changes are seen in the spine. Chest wall: No abnormality visualized. Upper abdomen: There is atrophy of the visualized pancreas. Cholecystectomy changes are noted. A smal l hiatal hernia is present IMPRESSION: 1. Prominent elevation of the right hemidiaphragm with linear and parenchymal changes at the right gisela ng base which are most likely attributable to volume loss. However, aspiration pneumonitis or pneumonia right lung base cannot be entirely excluded.
--- NOTE | 2019-10-19 17:39 | RAD ---
XR Pelvis AP STANDARD History: Trauma Comparison: None. Findings: Moderate narrowing of the hips bilaterally. Moderate degenerative disease at pubic symphysi s. Obturator rings appear to be intact. The femoral heads and necks are intact. Moderate stool burden throughout the colon. Sacrum appears to be intact. Impression: Degenerative changes. No acute fracture.
--- NOTE | 2019-10-19 17:39 | RAD ---
XR Femur Lt 2 View STANDARD History: Pain. Trauma Comparison: None. Findings: Femur is intact. No acute displaced fracture or malalignment. Impression: No acute displaced fracture or malalignment.
[2019-10-19] MEDS ORDERED: MEROPENEM 1 GM/50 ML 1 GM in Premix Bag 1 BAG IVPB SCH (17:45)
[2019-10-19] MEDS ORDERED: Cefepime 2 GM VIAL ONE (19:04)
[2019-10-19] MEDS ORDERED: Vancomycin 1 GM/200 ML BAG ONE (20:11)
[2019-10-19] MEDS ORDERED: Guaifenesin DM 100-10/5 ML UDCUP PO PRN (20:16)
[2019-10-19] MEDS ORDERED: HumaLOG 300 UNITS/3 ML VIAL SC PRN ×2 (20:16)
[2019-10-19] MEDS ORDERED: Bisacodyl 10 MG SUPP PR PRN (20:16)
[2019-10-19] MEDS ORDERED: Dextrose 50% Abboject 50 ML SYRINGE SLOW IVP PRN (20:16)
[2019-10-19] MEDS ORDERED: Acetaminophen 325 MG TAB PO PRN (20:16)
[2019-10-19] MEDS ORDERED: Senokot S 8.6-50 MG TAB PO PRN (20:16)
[2019-10-19] MEDS ORDERED: Dextrose 5% in Water 1,000 ML IV PRN (20:16)
[2019-10-19] MEDS ORDERED: HYDROcodone/Acetaminophen 10/325 mg Tablet PO PRN (20:16)
[2019-10-19 21:18] LABS: Lactic Acid 2.5 mmol/L (0.5-2.2)
[2019-10-19] MEDS: Sodium Chloride 0.9% 1,000 ML IV SCH (22:25)
[2019-10-19] MEDS: Atorvastatin Calcium 10 MG TAB PO SCH (22:27)
[2019-10-19] MEDS: Gabapentin 300 MG CAP PO SCH (22:27)
[2019-10-19] MEDS: Famotidine 20 MG TAB PO SCH (22:27)
[2019-10-19] MEDS: Escitalopram Oxalate 20 mg Tablet PO SCH (22:28)
[2019-10-19] MEDS: METHadone HCl 10 MG TAB PO SCH (22:51)
[2019-10-19 23:42] VITALS: BMI 31.4
[2019-10-20] MEDS: Ondansetron PF 4 MG/2 ML Vial IVP PRN (01:32)
[2019-10-20] MEDS: MEROPENEM 1 GM/50 ML 1 GM in Premix Bag 1 BAG IVPB SCH ×3 (05:07→21:14)
[2019-10-20 05:58] LABS: #Lymphocytes 1.2 thou/uL (1.20-3.40); #Monocytes 0.5 thou/uL (0.11-0.59); #Neutrophils 8.6 thou/uL (1.40-6.50); %Basophils 0.1 % (0.0-1.0); %Eosinophils 0.2 % (0.0-10.0); %Lymphocytes 11.6 % (21.0-51.0); %Monocytes 4.7 % (0.0-10.0); %Neutrophils 83.4 % (42.0-75.0); Mean Corpuscular HGB CONC 32.4 g/dL (32.0-36.0); Mean Corpuscular Volume 89.6 fL (78.0-98.0); Mean Platelet Volume 6.2 fL (7.4-10.4); Platelet Count 266 thou/uL (130-400); RBC Distribution Width 12.4 % (11.5-14.5); Red Blood Cell (RBC) Count 4.14 mill/uL (4.20-5.40); White Blood Cell (WBC) Count 10.4 thou/uL (4.8-10.8)
[2019-10-20 06:16] LABS: ALT (SGPT) 14 U/L (8-55); AST (SGOT) 24 U/L (5-34); Albumin 3.4 g/dL (3.5-5.0); Alkaline Phosphatase 50 U/L (40-110); Anion Gap 10 mmol/L (10-20); BUN (Urea Nitrogen) 10 mg/dL (9.8-20.1); Bilirubin, Total 0.2 mg/dL (0.2-1.2); Calc. Creatinine Clearance 140 mL/min (70-130); Calcium 8.1 mg/dL (7.8-10.44); Carbon Dioxide 28 mmol/L (22-29); Chloride 104 mmol/L (98-107); Estimated GFR-MDRD Greater than 90; Globulin 2.7 g/dL (2.4-3.5); Glucose 119 mg/dL (70-105); Potassium 4.8 mmol/L (3.5-5.1); Protein, Total 6.1 g/dL (6.0-8.3); Sodium 137 mmol/L (136-145)
--- NOTE | 2019-10-20 06:57 | PDOC.FM ---
- Subjective Subjective: Reports cough, fever, has been feeling really bad. Is feeling better than yesterday. - Objective MAR Reviewed: Yes Vital Signs & Weight: Vital Signs (12 hours) Temp Pulse Resp BP Pulse Ox 10/20/19 04:40 98.2 F 84 16 105/67 95 10/20/19 01:12 18 98 10/20/19 01:11 98 10/20/19 00:16 97.6 F 90 12 106/72 93 L 10/19/19 22:45 98 10/19/19 20:30 98.1 F 86 10 L 123/80 98 Weight Weight 83.225 kg I&O: 10/18/19 10/19/19 10/20/19 06:59 06:59 06:59 Intake Total 590 Output Total 275 Balance 315 Result Diagrams: 10/20/19 05:46 10/20/19 05:46 Phys Exam - Physical Examination Constitutional: NAD Dry MM Neck: supple Respiratory: wheezing present Cardiovascular: RRR Gastrointestinal: soft Mildly tender with no rebound or rigidity Neurological: moves all 4 limbs Psychiatric: normal affect, A&O x 3 Dx/Plan - Plan Plan: Respiratory infection likely Viral - Continue Abx. Will stress dose steroids. - Continue inhalers. - COVID pending. Continue isolation precautions - Bld cxs pending. RVP & Flu neg. Deconditioning - CM consulted - Order PT/OT once COVID results Chronic Pain - Continue Methadone & [place] UTI - Continue Meropenem due to multiple allergies RA - Continue home meds COPD - Continue home meds Code Status: FULL DVT ppx: Lovenox GI ppx: Pepcid PCP: SIEGEL ([facility]) Addendum - Attending - Attending Attestation Date/Time: 10/20/19 1257 I personally evaluated the patient and discussed the management with Dr. Fontana I agree with the History, Examination, Assessment and Plan documented above with any addition or exceptions noted below - Patient felling a little better. Afebrile VSS. A/P: 1) AMS - improved; continue to monitor. 2) Viral syndrome - COVID pending; RVP/flu negative. 3) UTI - continue current abx.
--- NOTE | 2019-10-20 07:31 | HP ---
REASON FOR ADMISSION: Altered mental state, urinary tract infection, possible viral syndrome. HISTORY OF PRESENTING ILLNESS: Please note, majority of this history is obtained by talking to Mr. Kofi Armstrong, the patient's father and Mr. Kofi Villalobos, the patient 's son as the patient is very lethargic. The patient was hard to wake up when her father went to see her around 1 p.m., that was unusual for her not to wake up by then. She was also confused then. Around 2 p.m., the son went to check on her and he could not wake her up. He found her nasal cannula to be displaced and the saturations were reading 78% then. The patient normally wears 2 to 3 L oxygen via nasal cannula at home. He promptly placed the tongs inside her nose, and the saturations read 95% after 5 minutes. Ms. Abad later wanted to go to bathroom and she started mobilizing with a walker, but while coming back, fell. She could not assist standing up and was confused. EMS was summoned and they checked her blood pressure to be low and her heart rate was high. The exact numbers are not available. She finally made it to emergency room here. On arrival here, she had a temperature of 99 degrees with a pulse of 116. She currently wakes up and responds to questions, but falls asleep soon. She is maintaining airway at present. She is not complaining of any altered sputum or abdominal pain or nausea at present. 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 Smith. She also has scleroderma, Raynaud disease, and peripheral neuropathy, hypertension, dyslipidemia, history of GERD, history of COPD/asthma, obesity, appendectomy, cholecystectomy, history of cellulitis, anxiety, depression, chronic pain syndrome. CURRENT MEDICATIONS: The patient is on, 1. Methadone 10 mg three times daily. 2. Morphine sulfate 15 mg extended release q.6 hourly. 3. Clonazepam 1 mg twice daily p.r.n. for anxiety. 4. Gabapentin 300 mg three times daily. 5. Prednisone 5 mg daily. 6. Citalopram 20 mg daily. 7. Movantik 12.5 mg q.a.m. p.r.n. for constipation. 8. Singulair 10 mg daily. 9. Sumatriptan p.r.n. for migraine. 10. Xeljanz 11 mg daily for her rheumatologic disease, advised by Dr. Smith. ALLERGIES: ALLERGIC TO IODINE, NSAIDS, PENICILLIN, SULFA. PERSONAL HISTORY: Does not abuse alcohol or drugs. Does not smoke now. Walks with a walker. Lives with her parents and son. FAMILY HISTORY: Mother has history of hypertension. Father is healthy. CODE STATUS: Do not attempt to resuscitate. This was confirmed with the patient and her father and son as well. REVIEW OF SYSTEMS: Cannot be accurately obtained as the patient is lethargic at present. PHYSICAL EXAMINATION: GENERAL: The patient is a 53-year-old female, who is currently not in any acute distress. VITAL SIGNS: Blood pressure 116/86, pulse 116 per minute, respiratory rate 18 per minute, temperature 99.3 degrees Fahrenheit, and saturating 95% on 2 L nasal cannula. NECK: Supple. No elevated JVD. HEENT: Eyes; extraocular muscles intact. Pupils reacting to light. Pupils are 4 mm and reacting. Oral cavity, mucous membranes are dry. No exudates or congestion. CARDIOVASCULAR: S1, S2 heard. Regular rhythm. Tachycardic. RESPIRATORY: Air entry 1+ bilateral. No rales or rhonchi. Distant breath sounds. ABDOMEN: Soft. Bowel sounds heard. No tenderness, rigidity, or guarding. EXTREMITIES: No peripheral edema or calf tenderness. VASCULAR SYSTEM: Peripheral pulses 1+ bilateral. No ischemic ulcerations or gangrene. CENTRAL NERVOUS SYSTEM: The patient is lethargic, but is moving all extremities. No gross focal deficits noted. PSYCHIATRIC SYSTEM: Cannot be accurately assessed as the patient is lethargic at present. LABORATORY DATA: White count of 10, H and H for 14 and 41, platelet count 356 with 90% neutrophils. Electrolytes stable. BUN 12, creatinine 0.8, serum glucose 175, lactic acid 2.3, AST 39, ALT 19, albumin 4.0. Procalcitonin is normal at 0.12. UA is positive for UTI, but has 7 to [address] chest shows elevated right hemidiaphragm, pneumonia at the right lung base could not be excluded based on the CAT scan results. EKG done shows normal sinus rhythm at 99 beats per minute. There is nonspecific ST-T wave changes. The patient has had multiple imaging studies including a pelvic x-ray and left femur two-view x-rays, C- spine CAT scan, brain CT, none of which show any acute abnormalities or fractures. 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 Influenza A and B swabs were negative. CLINICAL IMPRESSION AND PLAN: The patient will be admitted to medical floor for altered mental state, urinary tract infection, severe deconditioning, possible overmedication on her regular chronic pain medications/anxiety medications. She is given a dose of meropenem in the ER and will continue the same for now until cultures are available. The patient has also had COVID-19 swab taken in the ER. We will follow up on that. A respiratory viral pathogen smear is also taken. She will be gently hydrated with normal saline at 70 mL/hour for a total of 2 L. She appears clinically very dry. We will continue her prednisone, methadone, Singulair, Ventolin inhaler, Symbicort inhaler, Hiram, Neurontin, Plavix, Lexapro as before. Her morphine will be held for now and if the patient were to go into withdrawal symptoms, we will give her morphine on a p.r.n. basis. It is unclear who her pain specialist is. She sees Dr. Bach from [facility] and Dr. Wolff in the outpatient setting. I have spoken to Dr. King, who is the attending for residents today and given a full sign-out. [facility] will take over patient's care from tomorrow morning. I have given full updates to the patient's son and the patient's father over the phone. They are not aware of the patient having elevated right hemidiaphragm in the past. Likely, this might be position induced versus infiltrate in that location. We will wait for the labs to come back and once COVID is ruled out, the patient can have PT/OT evaluations. We will also place a consultation for Case Management to set up home health with PT and Nursing. She will likely need a slow tapering of her chronic pain medications to prevent recurrence of similar issue. Job ID: [id number] MTDD
[2019-10-20] MEDS: Mometasone 200 MCG/Formoterol 5 MCG 120 PUFF INHALER INH SCH ×2 (07:38→19:36)
[2019-10-20] MEDS: Albuterol 200 PUFF (6.7GM INHALER) INH SCH ×3 (07:38→19:33)
[2019-10-20] MEDS ORDERED: predniSONE 5 MG TAB PO SCH (09:00)
[2019-10-20] MEDS ORDERED: FLU VACC QS2019-20(6MOS UP)/PF 60 MCG/0.5 ML SYRINGE IM ONE (09:00)
[2019-10-20] MEDS: Clopidogrel Bisulfate 75 MG TAB PO SCH (09:47)
[2019-10-20] MEDS: Famotidine 20 MG TAB PO SCH ×2 (09:48→21:13)
[2019-10-20] MEDS: Enoxaparin Sodium 40 MG/0.4 ML SYRINGE SC SCH (09:48)
[2019-10-20] MEDS: Montelukast Sodium 10 mg Tablet PO SCH (09:48)
[2019-10-20] MEDS: Gabapentin 300 MG CAP PO SCH ×3 (09:48→21:13)
[2019-10-20] MEDS: Fluticasone Propionate Nasal Spray 16 gm Bottle NASAL SCH (09:49)
[2019-10-20] MEDS: METHadone HCl 10 MG TAB PO SCH ×3 (09:51→21:13)
[2019-10-20] MEDS: Sodium Chloride 0.9% 1,000 ML IV SCH (13:02)
[2019-10-20] MEDS: Escitalopram Oxalate 20 mg Tablet PO SCH (21:13)
[2019-10-20] MEDS: Atorvastatin Calcium 10 MG TAB PO SCH (21:13)
[2019-10-21] MEDS: MEROPENEM 1 GM/50 ML 1 GM in Premix Bag 1 BAG IVPB SCH (06:23)
[2019-10-21] MEDS: Mometasone 200 MCG/Formoterol 5 MCG 120 PUFF INHALER INH SCH (06:51)
--- NOTE | 2019-10-21 08:10 | PDOC.FM ---
- Subjective Subjective: pt resting comfortably in bed. feeling much better since admission. spoke with nurse and family and has decided to be full code. chart changed appropriately - Objective Vital Signs & Weight: Vital Signs (12 hours) Temp Pulse Resp BP Pulse Ox 10/21/19 06:51 86 18 100 10/21/19 04:57 98 10/21/19 00:00 98.7 F 85 17 126/82 100 Weight Weight 83.225 kg I&O: 10/20/19 10/21/19 10/22/19 06:59 06:59 06:59 Intake Total 590 1970 Output Total 275 450 Balance 315 1520 Result Diagrams: 10/20/19 05:46 10/20/19 05:46 Phys Exam - Physical Examination Constitutional: NAD HEENT: moist MMs Neck: no JVD poor air movement Cardiovascular: no significant murmur Gastrointestinal: no distention Musculoskeletal: pulses present Neurological: moves all 4 limbs Psychiatric: normal affect Skin: no rash Dx/Plan (1) Anxiety and depression Code(s): F41.9 - ANXIETY DISORDER, UNSPECIFIED; F32.9 - MAJOR DEPRESSIVE DISORDER, SINGLE EPISODE, UNSPECIFIED Status: Chronic (2) CHF (congestive heart failure) Code(s): I50.9 - HEART FAILURE, UNSPECIFIED Status: Chronic (3) COPD, severe Code(s): J44.9 - CHRONIC OBSTRUCTIVE PULMONARY DISEASE, UNSPECIFIED Status: Chronic (4) Hypertension Code(s): I10 - ESSENTIAL (PRIMARY) HYPERTENSION Status: Chronic (5) KATHIA on CPAP Code(s): G47.33 - OBSTRUCTIVE SLEEP APNEA (ADULT) (PEDIATRIC) Status: Chronic (6) Paroxysmal a-fib Code(s): I48.0 - PAROXYSMAL ATRIAL FIBRILLATION Status: Chronic - Plan Plan: Respiratory infection likely Viral - Continue Abx. Will stress dose steroids. - Continue inhalers. - Bld cxs NGTD. RVP/Flu/COVID neg. Deconditioning - CM consulted - Order PT/OT Chronic Pain - Continue Methadone & [place] UTI - not clean catch - consider DCing abx RA - Continue home meds COPD - Continue home meds Code Status: FULL DVT ppx: Lovenox GI ppx: Pepcid PCP: SIEGEL ([facility]) Addendum - Attending - Attending Attestation Date/Time: 10/21/19 4979 I personally evaluated the patient and discussed the management with Dr. Ward. I agree with the History, Examination, Assessment and Plan documented above with any addition or exceptions noted below. Patient here for hypoxia and altered mentation. That is now improved. Continue to wean O2 as tolerated. She can be stopped from meropenam therapy as she is unlikely to have significant MDR pneumonia. She has been restarted on her home pain regimen 2/2 her EDS.
[2019-10-21] MEDS: Albuterol 200 PUFF (6.7GM INHALER) INH SCH ×2 (09:00→13:21)
[2019-10-21] MEDS: Fluticasone Propionate Nasal Spray 16 gm Bottle NASAL SCH (09:01)
[2019-10-21] MEDS: METHadone HCl 10 MG TAB PO SCH ×4 (09:02→21:38)
[2019-10-21] MEDS: Montelukast Sodium 10 mg Tablet PO SCH (09:03)
[2019-10-21] MEDS: predniSONE 20 MG TAB PO SCH (09:03)
[2019-10-21] MEDS: Gabapentin 300 MG CAP PO SCH ×5 (09:04→21:38)
[2019-10-21] MEDS: Famotidine 20 MG TAB PO SCH (09:04)
[2019-10-21] MEDS: Clopidogrel Bisulfate 75 MG TAB PO SCH (09:04)
[2019-10-21] MEDS: Enoxaparin Sodium 40 MG/0.4 ML SYRINGE SC SCH (09:05)
[2019-10-21] MEDS ORDERED: Morphine IR Tab 15 MG TAB PO PRN ×2 (10:12→10:22)
[2019-10-21] MEDS ORDERED: Furosemide 40 MG TAB PO PRN ×2 (10:12→16:00)
[2019-10-21] MEDS ORDERED: RISEDRONATE SODIUM 35 MG PO SCH (10:15)
[2019-10-21] MEDS ORDERED: Furosemide 20 MG TAB PO PRN ×2 (10:20→10:21)
[2019-10-21] MEDS ORDERED: RISEDRONATE SODIUM PO SCH (12:00)
--- NOTE | 2019-10-21 17:04 | PQF ---
CLINICAL DOCUMENTATION IMPROVEMENT CLARIFICATION FORM: ICD-10 Updated PLEASE DO AN ADDENDUM TO THE PROGRESS NOTE WITH ANY DOCUMENTATION UPDATES OR ADDITIONS AND CARRY THROUGH TO DC SUMMARY. THANK YOU. DATE: 10/21/2019 ATTN: Dr. Ward/ Attending Dr. Westbrook Please exercise your independent, professional judgment in responding to the clarification form. Clinical indicators are provided on the bottom of this form for your review Please check appropriate box(s): [ x ] Acute Respiratory Failure: [x ] with Hypoxia [ ] with Hypercapnia [ ] Acute On Chronic Respiratory Failure: [ ] with Hypoxia [ ] with Hypercapnia [ ] Acute Respiratory Failure due to: (etiology) [ ] Chronic Respiratory Failure only [ ] with Hypoxia [ ] with Hypercapnia [ ] Respiratory Insufficiency [ ] Hypoxia [ ] Other diagnosis [ ] Unable to determine In addition, please specify: Present on Admission (POA): [ x] Yes [ ] No [ ] Unable to determine For continuity of documentation, please document condition throughout progress notes and discharge summary. Thank You. CLINICAL INDICATORS - SIGNS / SYMPTOMS / LABS / RESULTS AND LOCATION IN MR ER RECORD 10/18: CC: It was noted by both EMS on scene and here that she is hypoxic on room air. Doctor Notes: X-ray shows a possible aspiration pneumonitis. This goes along with her hypoxia. Diagnosis: hypoxic respiratory failure. Additional: Aspiration pneumonia H&P 10/18: Around 2 pm, son went to check on her and could not wake her up. He found her nasal cannula to be displaced and saturations were reading 78% then. VS: BP 116/86, pulse 116, resp. 18, sat 95% on 2 L nc RISKS: H&P 10/18: The pt normally wears 2 to 3 L oxygen via nc at home. HX of CHF. Hx of COPD/ asthma, obesity, chronic pain syndrome. 10/19 (Addi) Respiratory infection likely Viral. TREATMENT: Order 10/19: Resp: O2 to keep sats 92% prn Order 10/18-10/19: prednisone 5 mg po daily Order 10/19: prednisone 40mg po daily Thank you, Jolly (This form is maintained as a part of the permanent medical record) 2015 [employer] All Rights Reserved Jolly Joyner RN, BSN [email or web address]
[2019-10-21] MEDS ORDERED: clonazePAM 1 MG TAB PO SCH (21:00)
[2019-10-21] MEDS: clonazePAM 1 MG TAB PO SCH (21:14)
[2019-10-21] MEDS: Escitalopram Oxalate 20 mg Tablet PO SCH (21:14)
[2019-10-21] MEDS: Atorvastatin Calcium 10 MG TAB PO SCH (21:14)
[2019-10-22] MEDS: Mometasone 200 MCG/Formoterol 5 MCG 120 PUFF INHALER INH SCH ×3 (02:30→18:37)
[2019-10-22] MEDS: Albuterol 200 PUFF (6.7GM INHALER) INH SCH ×4 (02:30→18:36)
--- NOTE | 2019-10-22 07:24 | PDOC.FM ---
- Subjective Subjective: pt resting in bed, reports shakes overnight, denies worsening cough or dyspnea - Objective Vital Signs & Weight: Vital Signs (12 hours) Temp Pulse Resp BP Pulse Ox 10/22/19 06:00 68 19 10/22/19 04:00 97.9 F 68 20 115/71 98 10/22/19 00:00 98.5 F 65 20 105/67 96 10/21/19 20:08 98.7 F 89 20 108/71 94 L Weight Weight 83.225 kg I&O: 10/21/19 10/22/19 10/23/19 06:59 06:59 06:59 Intake Total 1970 360 Output Total 450 Balance 1520 360 Result Diagrams: 10/20/19 05:46 10/20/19 05:46 Phys Exam - Physical Examination Constitutional: NAD HEENT: moist MMs Neck: no JVD Respiratory: clear to auscultation bilateral Cardiovascular: no significant murmur Gastrointestinal: soft, no distention Musculoskeletal: pulses present Neurological: moves all 4 limbs Lymphatic: no nodes (d) Psychiatric: normal affect Skin: no rash Dx/Plan (1) Anxiety and depression Code(s): F41.9 - ANXIETY DISORDER, UNSPECIFIED; F32.9 - MAJOR DEPRESSIVE DISORDER, SINGLE EPISODE, UNSPECIFIED Status: Chronic (2) CHF (congestive heart failure) Code(s): I50.9 - HEART FAILURE, UNSPECIFIED Status: Chronic (3) COPD, severe Code(s): J44.9 - CHRONIC OBSTRUCTIVE PULMONARY DISEASE, UNSPECIFIED Status: Chronic (4) Hypertension Code(s): I10 - ESSENTIAL (PRIMARY) HYPERTENSION Status: Chronic (5) KATHIA on CPAP Code(s): G47.33 - OBSTRUCTIVE SLEEP APNEA (ADULT) (PEDIATRIC) Status: Chronic (6) Paroxysmal a-fib Code(s): I48.0 - PAROXYSMAL ATRIAL FIBRILLATION Status: Chronic - Plan Plan: Respiratory infection likely Viral - no abx indicated. - Continue inhalers. - Bld cxs NGTD. RVP/Flu/COVID neg. Deconditioning - CM consulted - Order PT/OT Chronic Pain - Continue Methadone & [place] bacturia RA - Continue home meds COPD - Continue home meds Code Status: FULL DVT ppx: Lovenox dispo: stable for dc to snf vs rehab when available Addendum - Attending - Attending Attestation Date/Time: 10/22/19 [id number] I personally evaluated the patient and discussed the management with Dr. Ward. I agree with the History, Examination, Assessment and Plan documented above with any addition or exceptions noted below.
[2019-10-22] MEDS ORDERED: TOFACITINIB CITRATE PO SCH ×2 (09:00)
[2019-10-22] MEDS: Clopidogrel Bisulfate 75 MG TAB PO SCH (09:26)
[2019-10-22] MEDS: Potassium Chloride 20 MEQ TAB PO SCH (09:26)
[2019-10-22] MEDS: Escitalopram Oxalate 20 mg Tablet PO SCH ×2 (09:26→22:09)
[2019-10-22] MEDS: Enoxaparin Sodium 40 MG/0.4 ML SYRINGE SC SCH (09:27)
[2019-10-22] MEDS: Montelukast Sodium 10 mg Tablet PO SCH (09:27)
[2019-10-22] MEDS: predniSONE 20 MG TAB PO SCH (09:27)
[2019-10-22] MEDS: clonazePAM 1 MG TAB PO SCH ×2 (09:27→22:09)
[2019-10-22] MEDS: Gabapentin 300 MG CAP PO SCH ×4 (09:27→22:09)
[2019-10-22] MEDS: Fluticasone Propionate Nasal Spray 16 gm Bottle NASAL SCH (09:28)
[2019-10-22] MEDS: Ondansetron PF 4 MG/2 ML Vial IVP PRN (09:33)
[2019-10-22] MEDS: METHadone HCl 10 MG TAB PO SCH ×3 (10:05→22:11)
[2019-10-22] MEDS: Atorvastatin Calcium 10 MG TAB PO SCH (22:09)
[2019-10-23] MEDS: Albuterol 200 PUFF (6.7GM INHALER) INH SCH ×2 (07:04→13:35)
[2019-10-23] MEDS: Mometasone 200 MCG/Formoterol 5 MCG 120 PUFF INHALER INH SCH (07:06)
--- NOTE | 2019-10-23 07:32 | PDOC.FM ---
- Subjective Subjective: pt resting comfortably in bed, reports pain and some shakes. afebrile - Objective Vital Signs & Weight: Vital Signs (12 hours) Temp Pulse Resp BP Pulse Ox 10/23/19 07:06 62 16 100 10/22/19 20:00 96 10/22/19 19:54 98.5 F 77 20 116/74 96 Weight Weight 83.225 kg I&O: 10/22/19 10/23/19 10/24/19 06:59 06:59 06:59 Intake Total 360 Balance 360 Result Diagrams: 10/20/19 05:46 10/20/19 05:46 Phys Exam - Physical Examination Constitutional: NAD HEENT: moist MMs Neck: no JVD Gastrointestinal: no distention Musculoskeletal: pulses present Neurological: moves all 4 limbs Psychiatric: normal affect Skin: no rash Dx/Plan (1) Anxiety and depression Code(s): F41.9 - ANXIETY DISORDER, UNSPECIFIED; F32.9 - MAJOR DEPRESSIVE DISORDER, SINGLE EPISODE, UNSPECIFIED Status: Chronic (2) CHF (congestive heart failure) Code(s): I50.9 - HEART FAILURE, UNSPECIFIED Status: Chronic (3) COPD, severe Code(s): J44.9 - CHRONIC OBSTRUCTIVE PULMONARY DISEASE, UNSPECIFIED Status: Chronic (4) Hypertension Code(s): I10 - ESSENTIAL (PRIMARY) HYPERTENSION Status: Chronic (5) KATHIA on CPAP Code(s): G47.33 - OBSTRUCTIVE SLEEP APNEA (ADULT) (PEDIATRIC) Status: Chronic (6) Paroxysmal a-fib Code(s): I48.0 - PAROXYSMAL ATRIAL FIBRILLATION Status: Chronic - Plan Plan: Respiratory infection likely Viral - no abx indicated. - Continue inhalers. - Bld cxs NGTD. RVP/Flu/COVID neg. Deconditioning - CM consulted - Order PT/OT Chronic Pain - Continue Methadone & [place] - d/w decreasing regimen as likely contributing to falls/ams - decreased TID methadone bacturia RA - Continue home meds COPD - Continue home meds Code Status: FULL DVT ppx: Lovenox dispo: stable for dc to snf vs rehab when available Addendum - Attending - Attending Attestation Date/Time: 10/23/19 1200 I personally evaluated the patient and discussed the management with Dr. Ward. I agree with the History, Examination, Assessment and Plan documented above with any addition or exceptions noted below. Patient doing well. She is stable for discharge to [facility] today.
[2019-10-23 07:50] VITALS: BP 112/54; TEMP 98.3
[2019-10-23] MEDS: predniSONE 20 MG TAB PO SCH (08:54)
[2019-10-23] MEDS: Escitalopram Oxalate 20 mg Tablet PO SCH (08:55)
[2019-10-23] MEDS: Clopidogrel Bisulfate 75 MG TAB PO SCH (08:55)
[2019-10-23] MEDS: Potassium Chloride 20 MEQ TAB PO SCH (08:55)
[2019-10-23] MEDS: METHadone HCl 10 MG TAB PO SCH (08:55)
[2019-10-23] MEDS: Montelukast Sodium 10 mg Tablet PO SCH (08:55)
[2019-10-23] MEDS: Fluticasone Propionate Nasal Spray 16 gm Bottle NASAL SCH (08:56)
[2019-10-23] MEDS: Gabapentin 300 MG CAP PO SCH (08:56)
[2019-10-23] MEDS: clonazePAM 1 MG TAB PO SCH (08:56)
[2019-10-23] MEDS: Enoxaparin Sodium 40 MG/0.4 ML SYRINGE SC SCH (08:56)
[2019-10-23] MEDS ORDERED: METHadone HCl 10 MG TAB PO SCH (15:00)
--- NOTE | 2019-10-24 11:37 | DIS ---
DATE OF ADMISSION: 10/19/2019 DATE OF DISCHARGE: 10/23/2019 DISCHARGE ATTENDING: Omar Westbrook MD. CONSULTS: None. IMAGING STUDIES: Brain, cervical spine, and chest CT revealed no acute abnormalities. Pelvis and femur x-ray revealed no acute abnormalities. DISCHARGE MEDICATIONS: 1. Potassium chloride 20 mEq p.o. daily. 2. Vitamin D3 4000 units p.o. daily. 3. Calcium 1000 units p.o. daily. 4. Prednisone 5 mg p.o. daily. 5. Zofran 4 mg SL q.6 hours p.r.n. 6. Plavix 75 mg p.o. daily. 7. Lasix 20 mg p.o. 1600 hours p.r.n. 8. Ventolin HFA two puffs inhaled q.4 hours p.r.n. 9. Singulair 10 mg p.o. daily. 10. Methadone p.o. 10 mg in the morning and evening and 5 mg in the afternoon. 11. Sumatriptan 25 mg p.o. q.4 hours p.r.n. 12. Myrbetriq 50 mg p.o. daily. 13. Pravastatin 40 mg p.o. q.p.m. 14. Flonase 2 sprays each naris daily p.r.n. 15. Risedronate 35 mg p.o. q.7 days. 16. Symbicort one puff inhaled b.i.d. 17. Xeljanz one tab p.o. daily. 19. Gabapentin 300 mg p.o. t.i.d. 20. Klonopin 1 tablet p.o. b.i.d. 21. Lexapro 20 mg p.o. daily. 22. Morphine sulfate 0.5 tab. 15 mg tab, p.o. q.6 hours p.r.n. 23. Prednisolone 40 mg p.o. daily. DISCHARGE DIAGNOSIS: Viral respiratory infection. SECONDARY DIAGNOSES: 1. Deconditioning. 2. Chronic pain. 3. Bacteria. 4. Rheumatoid arthritis. 5. 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 HISTORY OF PRESENT ILLNESS/HOSPITAL COURSE: Ms. Abad is a 53-year-old female with a past medical history significant for COPD secondary to chronic respiratory disease and chronic pain, who presented to the ER for dyspnea, and worsening shortness of breath with cough. Denied any fevers at that time. She initially was admitted to [facility], but was transferred to our service the following day as she is a patient at our clinic. She was initially started on antibiotics and tested for coronavirus. All of her tests came back negative. It was believed that ultimately she had a mild COPD exacerbation and likely a viral illness. The patient continued to improve , was doing better, stable on her home oxygen dose. Stress dose of steroids was given. The patient did not have any hypertensive episodes, was tolerating p.o. well, was severely deconditioned from her COPD exacerbation, and viral illness, so was considered for senior living rehab, which she was appropriate for. DISCHARGE INSTRUCTIONS: Location, senior living. Diet: Heart healthy, low-sodium. Activity, as tolerated. Follow up with PCP in the next 3 to 7 days. Job ID: [id number] MTDD
--- NOTE | 2019-10-29 13:34 | EKG ---
Test Reason : Blood Pressure : / mmHG Vent. Rate : 099 BPM Atrial Rate : 099 BPM P-R Int : 166 ms QRS Dur : 082 ms QT Int : 372 ms P-R-T Axes : 029 010 -04 degrees QTc Int : 477 ms Normal sinus rhythm Nonspecific T wave abnormality Prolonged QT Abnormal ECG Confirmed by AMBER CEVALLOS MD ([id number]), food editor MAURICIO KITCHEN ([id number]) on 10/29/2019 1:34:34 PM Referred By: Confirmed By:AMBER CEVALLOS MD
== END 2019-10-23 15:40 | DRG 865 ==
LOC: ERS 15:38 → T4-B 18:44
PROVIDERS: ADMIT Family Medicine; ATTEND Family Medicine
DX: B34.9 Viral infection, unspecified (principal); J96.01 Acute respiratory failure with hypoxia; I50.32 Chronic diastolic (congestive) heart failure; N39.0 Urinary tract infection, site not specified; J44.1 Chronic obstructive pulmonary disease with (acute) exacerbation; J98.8 Other specified respiratory disorders; G89.29 Other chronic pain; E78.5 Hyperlipidemia, unspecified; I11.0 Hypertensive heart disease with heart failure; M06.9 Rheumatoid arthritis, unspecified; K21.9 Gastro-esophageal reflux disease without esophagitis; E66.9 Obesity, unspecified; I48.0 Paroxysmal atrial fibrillation; F41.9 Anxiety disorder, unspecified; F32.9 Major depressive disorder, single episode, unspecified; R53.81 Other malaise; Z88.2 Allergy status to sulfonamides; Z88.8 Allergy status to other drugs, medicaments and biological substances; Z90.49 Acquired absence of other specified parts of digestive tract; Z88.5 Allergy status to narcotic agent; Z88.0 Allergy status to penicillin; Z91.013 Allergy to seafood; Z79.01 Long term (current) use of anticoagulants; Z68.31 Body mass index [BMI] 31.0-31.9, adult; Z20.828 Contact with and (suspected) exposure to other viral communicable diseases
CPT/HCPCS: 36415; 36416; 51701; 70450; 71250; 72125; 72170; 80053; 81003; 81015; 83605; 84145; 85025; 87040; 87086; 87633; 87804; 93005; 94660; 94664; 94760; 96365; 96367; 96375; 96376; A4353; J0692; J1650; J2185; J2405; J3370; J7512; U0001

== ENCOUNTER 2019-11-22 13:37 | Emergency (ER) | payer MEDICARE ==
--- NOTE | 2019-11-22 15:31 | CT ---
CT BRAIN NONCONTRAST: DATE: 11/22/2019 HISTORY: 53-year-old female status post acute head injury from fall FINDINGS: There is no evidence of acute intra-axial or extra-axial hemorrhage. There is no midline shift or any other mass effect. There is no extra-axial fluid collection. There is no evidence of obstructive hydrocephalus. Calvarium is intact. IMPRESSION: No acute intracranial findings.
--- NOTE | 2019-11-22 15:37 | CT ---
CT CERVICAL SPINE NONCONTRAST: DATE: 11/22/2019 HISTORY: cervical trauma 53-year-old female status post fall FINDINGS: There are no jumped or perched facets. There is no evidence of acute fracture. The vertebral body hei ghts are maintained. There is no prevertebral soft tissue swelling. Diffuse, severe osteopenia. Differential diagnosis for this includes severe osteoporosis, metabolic bone disease, and multiple my eloma. Nonspecific streaky interstitial changes at lung apices, similar to 07/11/2019. IMPRESSION: 1. No evidence of acute fracture or acute traumatic subluxation. 2. Severe, heterogeneous osteopenia.
--- NOTE | 2019-12-05 15:47 | EKG ---
Test Reason : Blood Pressure : / mmHG Vent. Rate : 098 BPM Atrial Rate : 098 BPM P-R Int : 150 ms QRS Dur : 070 ms QT Int : 326 ms P-R-T Axes : 026 003 019 degrees QTc Int : 416 ms Normal sinus rhythm Normal ECG Confirmed by DELLA RUSSELL DO ([id number]), multimedia editor MAURICIO KITCHEN ([id number]) on 12/05/2019 3:47:31 PM Referred By: Confirmed By:DELLA RUSSELL DO
== END 2019-11-22 16:18 | disposition home or self-care (01) ==
LOC: ERS 13:37
DX: S06.9X9A Unspecified intracranial injury with loss of consciousness of unspecified duration, initial encounter (principal); S00.03XA Contusion of scalp, initial encounter; I11.0 Hypertensive heart disease with heart failure; I50.9 Heart failure, unspecified; E78.5 Hyperlipidemia, unspecified; M06.9 Rheumatoid arthritis, unspecified; J44.9 Chronic obstructive pulmonary disease, unspecified; M81.0 Age-related osteoporosis without current pathological fracture; F41.9 Anxiety disorder, unspecified; F32.9 Major depressive disorder, single episode, unspecified; Z79.899 Other long term (current) drug therapy; Z79.891 Long term (current) use of opiate analgesic; W07.XXXA Fall from chair, initial encounter; Y92.002 Bathroom of unspecified non-institutional (private) residence as the place of occurrence of the external cause
CPT/HCPCS: 70450; 72125; 93005

== ENCOUNTER 2020-04-21 09:37 | Outpatient (CLI) | payer MEDICARE ==
--- NOTE | 2020-04-21 13:45 | ULT ---
ABDOMINAL ULTRASOUND: 04/21/20 INDICATIONS: Left upper quadrant pain. FINDINGS: Patient is status post cholecystectomy. Common bile duct measures 6 mm which is within normal range f or post cholecystectomy status. The liver is mildly heterogeneous and hyperechoic and is suboptimally imaged. No focal liver mass junito ntified. Spleen unremarkable. The aorta and IVC are mostly obscured but appear unremarkable as visualized. Pancreas is obscured. Both kidneys are imaged and appear unremarkable with no evidence of hydronephrosis or renal mass. IMPRESSION: 1. Status post cholecystectomy. 2. Liver is heterogeneous and suboptimally evaluated. If there are abnormal liver function tests or other concern, recommend further evaluation with CT. 3. Pancreas and midline structures are obscured from overlying bowel gas. The abdominal ultrasou nd is otherwise unremarkable. POS: AH
== END 2020-04-21 09:38 | disposition home or self-care (01) ==
LOC: BICULT 09:37
PROVIDERS: ATTEND Internal Medicine Gastroenterology
DX: R10.12 Left upper quadrant pain (principal); Z90.49 Acquired absence of other specified parts of digestive tract
CPT/HCPCS: 93975

== ENCOUNTER 2020-06-17 09:46 | Outpatient (CLI) | payer MEDICARE ==
--- NOTE | 2020-06-17 13:17 | MRI ---
MRI abdomen with and without contrast: 06/17/2020 HISTORY: 54-year-old female with left upper quadrant abdominal pain and abnormal appearance of liver on ultras ound. FINDINGS: In phase and out of phase sequences demonstrate diffusely fatty liver. There is no focal solid or cystic hepatic lesion. No hepatomegaly. Diffuse dilation of intrahepatic biliary radicles, and diffuse dilation of the common bile duct and c ommon hepatic duct, as seen on prior CT's of abdomen of 04/22/[address] of 03/24/2016, probably not significantly changed. Maximal caliber of common hepatic duct is up to 20 mm. Common bile duct is approximately 12 mm. The d ilated common bile duct terminates at the ampulla of Vater. There are no filling defects within the common duct. On the postcontrast images, there is an approximately 9 x 9 mm enhancing nodule at the region of the ampulla of Vater. This could either represent the normal papilla of Vater or a small neoplasm. The spleen, abdominal aorta, bilateral kidneys, and adrenals, are normal. Partially fatty replaced pancreas. No pancreatic mass or acute pancreatitis. There is diffuse mild dilation of the entire pancreatic duct. No free fluid visualized. Patent portal vein and hepatic veins. No retroperitoneal, amy hepatis, or mesenteric lymphadenopathy. No intra-abdominal abscess, particularly in the left upper quadrant where the patient is experiencing pain. No pleural effusion. IMPRESSION: 1.) Hepatic steatosis. 2) diffuse dilation of the biliary tree, unchanged since 04/22/2019 and 03/24/2016. This is most likely due to status post cholecystectomy. However, there is a 9 mm enhancing nodule at the region of the ampulla of Vater. This may represent a normal papilla of Vater, but a small neoplasm is not ruled out . Consider direct visualization with endoscopy. 3) diffuse mild dilation of the entire pancreatic duct.
== END 2020-06-17 09:47 | disposition home or self-care (01) ==
LOC: BICMRI 09:46
PROVIDERS: ATTEND Physician Assistant Medical
DX: R10.12 Left upper quadrant pain (principal); K74.60 Unspecified cirrhosis of liver; K86.89 Other specified diseases of pancreas; Z90.49 Acquired absence of other specified parts of digestive tract
CPT/HCPCS: 74183; 82565

== ENCOUNTER 2020-09-03 14:27 | Inpatient (IN) | payer MEDICARE ==
[2020-09-03 15:20] LABS: #Basophils 0.1 thou/uL (0.0-0.2); #Eosinphils 0.2 thou/uL (0.0-0.7); #Lymphocytes 2.7 thou/uL (1.20-3.40); #Monocytes 0.8 thou/uL (0.11-0.59); #Neutrophils 6.1 thou/uL (1.40-6.50); %Basophils 0.8 % (0.0-1.0); %Eosinophils 2.3 % (0.0-10.0); %Lymphocytes 27.1 % (21.0-51.0); %Monocytes 8.2 % (0.0-10.0); %Neutrophils 61.5 % (42.0-75.0); Hemoglobin 13.2 g/dL (12.0-16.0); Mean Corpuscular HGB CONC 32.1 g/dL (32.0-36.0); Mean Corpuscular Hemoglobin 27.7 pg (27.0-31.0); Mean Corpuscular Volume 86.3 fL (78.0-98.0); Platelet Count 387 thou/uL (130-400); RBC Distribution Width 12.5 % (11.5-14.5); Red Blood Cell (RBC) Count 4.77 mill/uL (4.20-5.40); White Blood Cell (WBC) Count 9.9 thou/uL (4.8-10.8)
[2020-09-03 15:37] LABS: ALT (SGPT) 14 U/L (8-55); AST (SGOT) 16 U/L (5-34); Albumin 3.9 g/dL (3.5-5.0); Alkaline Phosphatase 90 U/L (40-110); Anion Gap 13 mmol/L (10-20); BUN (Urea Nitrogen) 14 mg/dL (9.8-20.1); Bilirubin, Total 0.3 mg/dL (0.2-1.2); Calc. Creatinine Clearance 0 mL/min (70-130); Calcium 8.9 mg/dL (7.8-10.44); Carbon Dioxide 29 mmol/L (22-29); Chloride 101 mmol/L (98-107); Globulin 3.2 g/dL (2.4-3.5); Glucose 103 mg/dL (70-105); Protein, Total 7.1 g/dL (6.0-8.3); Sodium 139 mmol/L (136-145)
[2020-09-03] MEDS ORDERED: Dexamethasone 10 MG/ML VIAL ONE (15:39)
[2020-09-03 16:48] LABS: SARS-CoV-2 NAA Rapid Test Not Detected (NotDetected)
[2020-09-03] MEDS ORDERED: Morphine 4 MG/ML VIAL ONE (17:21)
[2020-09-03] MEDS ORDERED: Ondansetron PF 4 MG/2 ML Vial ONE (17:21)
[2020-09-03] MEDS ORDERED: Acetaminophen 325 MG TAB PO PRN (20:50)
[2020-09-03] MEDS ORDERED: Albuterol Sulfate 2.5 mg/3 ml Neb NEB PRN (20:50)
[2020-09-03] MEDS: Lactated Ringer's 1,000 ML IV SCH ×2 (21:13→21:16)
[2020-09-03 22:41] VITALS: BMI 28.3
[2020-09-03] MEDS ORDERED: Ondansetron ODT 4 MG TAB SL PRN (22:45)
[2020-09-03] MEDS ORDERED: Morphine IR Tab 15 MG TAB PO PRN ×3 (22:46→23:15)
[2020-09-03] MEDS ORDERED: Fluticasone Propionate Nasal Spray 16 gm Bottle NASAL PRN (22:53)
[2020-09-03] MEDS ORDERED: DULoxetine 60 MG CAP PO SCH (23:15)
[2020-09-03] MEDS ORDERED: Gabapentin 400 MG CAP PO SCH (23:15)
[2020-09-03] MEDS: Morphine IR Tab 15 MG TAB PO PRN (23:47)
[2020-09-03] MEDS: SUMAtriptan Succinate 25 MG TAB PO PRN (23:47)
[2020-09-04] MEDS: Morphine IR Tab 15 MG TAB PO PRN ×3 (05:09→15:28)
[2020-09-04 05:31] LABS: Anion Gap 11 mmol/L (10-20); BUN (Urea Nitrogen) 10 mg/dL (9.8-20.1); Calc. Creatinine Clearance 117 mL/min (70-130); Calcium 8.8 mg/dL (7.8-10.44); Carbon Dioxide 32 mmol/L (22-29); Chloride 102 mmol/L (98-107); Glucose 185 mg/dL (70-105); Potassium 4.5 mmol/L (3.5-5.1); Sodium 140 mmol/L (136-145)
[2020-09-04 06:24] LABS: #Lymphocytes 0.7 thou/uL (1.20-3.40); #Monocytes 0.2 thou/uL (0.11-0.59); #Neutrophils 8.3 thou/uL (1.40-6.50); %Basophils 0.1 % (0.0-1.0); %Eosinophils 0.1 % (0.0-10.0); %Lymphocytes 7.7 % (21.0-51.0); %Monocytes 2.6 % (0.0-10.0); %Neutrophils 89.5 % (42.0-75.0); Hemoglobin 11.8 g/dL (12.0-16.0); Mean Corpuscular HGB CONC 32.7 g/dL (32.0-36.0); Mean Corpuscular Hemoglobin 28.7 pg (27.0-31.0); Mean Corpuscular Volume 87.7 fL (78.0-98.0); Mean Platelet Volume 6.2 fL (7.4-10.4); Platelet Count 284 thou/uL (130-400); RBC Distribution Width 12.2 % (11.5-14.5); Red Blood Cell (RBC) Count 4.11 mill/uL (4.20-5.40); White Blood Cell (WBC) Count 9.2 thou/uL (4.8-10.8)
[2020-09-04] MEDS: Mometasone 200 MCG/Formoterol 5 MCG 120 PUFF INHALER INH SCH (07:09)
[2020-09-04] MEDS: Cholecalciferol 1,000 UNITS (25 MCG) TAB PO SCH (08:44)
[2020-09-04] MEDS: Potassium Chloride 20 MEQ TAB PO SCH (08:44)
[2020-09-04] MEDS: Montelukast Sodium 10 mg Tablet PO SCH (08:44)
[2020-09-04] MEDS: Clopidogrel Bisulfate 75 MG TAB PO SCH (08:44)
[2020-09-04] MEDS: Furosemide 40 MG TAB PO SCH (08:45)
[2020-09-04] MEDS: Gabapentin 400 MG CAP PO SCH ×2 (08:45→19:42)
[2020-09-04] MEDS: Calcium Carbonate 500 MG TAB PO SCH (08:45)
[2020-09-04] MEDS: Enoxaparin Sodium 40 MG/0.4 ML SYRINGE SC SCH (08:46)
[2020-09-04] MEDS: predniSONE 20 MG TAB PO SCH (08:46)
[2020-09-04] MEDS ORDERED: Furosemide 40 MG TAB PO SCH (09:00)
[2020-09-04] MEDS ORDERED: Gabapentin 400 MG CAP PO SCH ×2 (09:00→12:00)
[2020-09-04] MEDS ORDERED: DULoxetine 60 MG CAP PO SCH ×2 (09:00→21:00)
[2020-09-04] MEDS ORDERED: Tofacitinib Citrate [Xeljanz Xr] 11 MG Tab.Er.24h PO SCH (09:00)
[2020-09-04] MEDS: SUMAtriptan Succinate 25 MG TAB PO PRN ×2 (12:03→19:42)
[2020-09-04] MEDS ORDERED: Pravastatin Sodium 40 MG TAB PO SCH (21:00)
[2020-09-04] MEDS ORDERED: Atorvastatin Calcium 10 MG TAB PO SCH (21:00)
[2020-09-05] MEDS: Mometasone 200 MCG/Formoterol 5 MCG 120 PUFF INHALER INH SCH ×2 (00:43→07:27)
[2020-09-05] MEDS: SUMAtriptan Succinate 25 MG TAB PO PRN ×2 (01:14→05:08)
[2020-09-05] MEDS: Morphine IR Tab 15 MG TAB PO PRN ×3 (01:15→09:48)
[2020-09-05 08:16] VITALS: TEMP 98.2
[2020-09-05] MEDS: Enoxaparin Sodium 40 MG/0.4 ML SYRINGE SC SCH (09:26)
[2020-09-05] MEDS: Calcium Carbonate 500 MG TAB PO SCH (09:27)
[2020-09-05] MEDS: Gabapentin 400 MG CAP PO SCH (09:27)
[2020-09-05] MEDS: Cholecalciferol 1,000 UNITS (25 MCG) TAB PO SCH (09:27)
[2020-09-05] MEDS: Clopidogrel Bisulfate 75 MG TAB PO SCH (09:28)
[2020-09-05] MEDS: predniSONE 20 MG TAB PO SCH (09:28)
[2020-09-05] MEDS: Potassium Chloride 20 MEQ TAB PO SCH (09:28)
[2020-09-05] MEDS: Montelukast Sodium 10 mg Tablet PO SCH (09:28)
[2020-09-05] MEDS: Furosemide 40 MG TAB PO SCH (09:31)
[2020-09-05 11:04] VITALS: BP 122/74
== END 2020-09-05 11:35 | disposition home or self-care (01) | DRG 189 ==
LOC: ERS 14:27 → SURG B 20:50
PROVIDERS: ADMIT Family Medicine; ATTEND Family Medicine
DX: J96.21 Acute and chronic respiratory failure with hypoxia (principal); Q79.69 Other Ehlers-Danlos syndromes; J44.1 Chronic obstructive pulmonary disease with (acute) exacerbation; Z20.822 Contact with and (suspected) exposure to COVID-19; I50.9 Heart failure, unspecified; I11.0 Hypertensive heart disease with heart failure; M06.9 Rheumatoid arthritis, unspecified; M34.9 Systemic sclerosis, unspecified; I65.8 Occlusion and stenosis of other precerebral arteries; M81.0 Age-related osteoporosis without current pathological fracture; M19.90 Unspecified osteoarthritis, unspecified site; E55.9 Vitamin D deficiency, unspecified; I48.0 Paroxysmal atrial fibrillation; G43.909 Migraine, unspecified, not intractable, without status migrainosus; G47.31 Primary central sleep apnea; G62.9 Polyneuropathy, unspecified; F34.1 Dysthymic disorder; I73.00 Raynaud's syndrome without gangrene; Z88.6 Allergy status to analgesic agent; Z88.0 Allergy status to penicillin; Z91.013 Allergy to seafood; Z99.81 Dependence on supplemental oxygen; Z88.2 Allergy status to sulfonamides; Z88.7 Allergy status to serum and vaccine; Z91.018 Allergy to other foods; Z79.899 Other long term (current) drug therapy; Z79.02 Long term (current) use of antithrombotics/antiplatelets; Z79.52 Long term (current) use of systemic steroids; Z79.51 Long term (current) use of inhaled steroids; Z90.49 Acquired absence of other specified parts of digestive tract; Z90.710 Acquired absence of both cervix and uterus; Z82.49 Family history of ischemic heart disease and other diseases of the circulatory system; Z81.8 Family history of other mental and behavioral disorders
CPT/HCPCS: 0240U; 36415; 71045; 80048; 80053; 83605; 83880; 84145; 84484; 85025; 87040; 87149; 93005; 94640; 96374; 96375; J1100; J1650; J2270; J2405; J7512; J7620; Q0162

== ENCOUNTER 2020-09-24 12:42 | Outpatient (CLI) | payer MEDICARE | END 2020-09-24 12:43 | disposition home or self-care (01) | LOC: BICRAD 12:42 | PROVIDERS: ATTEND Internal Medicine Critical Care Medicine | DX: R06.00 Dyspnea, unspecified (principal) | CPT/HCPCS: 71046 ==

== ENCOUNTER 2021-01-29 14:54 | Emergency (ER) | payer MEDICARE ==
[2021-01-29 15:32] LABS: Bilirubin 1+ (Negative); Blood, Urine 3+ (Negative); Clarity Extra Turbid (Clear); Glucose, Urine (Dipstick) Normal (Negative); Ketone, Urine Trace mg/dL (Negative); Leukocyte 75 Leu/uL (Negative); Nitrite Negative (Negative); Protein, Urine (Dipstick) 100 mg/dL (Neg-Trace); RBC/HPF Greater than 50 HPF (0-3); Specific Gravity, Urine 1.037 (1.002-1.036); pH, Urine 5.5 (5.0-9.0)
[2021-01-29 15:33] LABS: Bacteria/HPF Rare-Few HPF (None Seen)
[2021-01-29 15:38] LABS: #Eosinphils 0.2 thou/uL (0.0-0.7); #Lymphocytes 1.9 thou/uL (1.20-3.40); #Monocytes 1.2 thou/uL (0.11-0.59); #Neutrophils 8.8 thou/uL (1.40-6.50); %Basophils 0.3 % (0.0-1.0); %Lymphocytes 15.3 % (21.0-51.0); %Monocytes 9.9 % (0.0-10.0); %Neutrophils 72.5 % (42.0-75.0); Hemoglobin 14.3 g/dL (12.0-16.0); Mean Corpuscular HGB CONC 31.8 g/dL (32.0-36.0); Mean Corpuscular Hemoglobin 27.8 pg (27.0-31.0); Mean Corpuscular Volume 87.5 fL (78.0-98.0); Mean Platelet Volume 7.2 fL (7.4-10.4); Platelet Count 327 thou/uL (130-400); RBC Distribution Width 13.2 % (11.5-14.5); Red Blood Cell (RBC) Count 5.15 mill/uL (4.20-5.40); White Blood Cell (WBC) Count 12.1 thou/uL (4.8-10.8)
[2021-01-29 15:56] LABS: ALT (SGPT) 34 U/L (8-55); AST (SGOT) 45 U/L (5-34); Albumin 4.2 g/dL (3.5-5.0); Alkaline Phosphatase 91 U/L (40-110); Anion Gap 12 mmol/L (10-20); BUN (Urea Nitrogen) 14 mg/dL (9.8-20.1); Bilirubin, Total 0.4 mg/dL (0.2-1.2); Calc. Creatinine Clearance 0 mL/min (70-130); Calcium 9.4 mg/dL (7.8-10.44); Carbon Dioxide 27 mmol/L (22-29); Chloride 103 mmol/L (98-107); Globulin 3.2 g/dL (2.4-3.5); Glucose 151 mg/dL (70-105); Potassium 4.3 mmol/L (3.5-5.1); Protein, Total 7.4 g/dL (6.0-8.3); Sodium 138 mmol/L (136-145)
[2021-01-29] MEDS ORDERED: Ondansetron PF 4 MG/2 ML Vial ONE (17:02)
[2021-01-29] MEDS ORDERED: Morphine 4 MG/ML VIAL ONE (17:02)
[2021-01-29 18:32] LABS: INR-International Normal Ratio 0.9; Prothrombin Time 11.8 sec (12.0-14.7)
[2021-01-29 18:33] LABS: PTT 29.7 sec (22.9-36.1)
== END 2021-01-29 19:18 | disposition home or self-care (01) ==
LOC: ERS 14:54
DX: N20.0 Calculus of kidney (principal); I11.0 Hypertensive heart disease with heart failure; I50.9 Heart failure, unspecified; E78.5 Hyperlipidemia, unspecified; I48.91 Unspecified atrial fibrillation; M06.9 Rheumatoid arthritis, unspecified; G47.31 Primary central sleep apnea; J44.9 Chronic obstructive pulmonary disease, unspecified
CPT/HCPCS: 36415; 74176; 80053; 81003; 81015; 83605; 85025; 85610; 85730; 87040; 87086; 93005; 94760; 96374; 96375; J2270; J2405

== ENCOUNTER 2021-02-09 09:22 | Outpatient (CLI) | payer MEDICARE | END 2021-02-09 09:23 | disposition home or self-care (01) | LOC: BICMAMMO 09:22 | PROVIDERS: ATTEND Internal Medicine Hospice and Palliative Medicine | DX: M80.00XA Age-related osteoporosis with current pathological fracture, unspecified site, initial encounter for fracture (principal) | CPT/HCPCS: 77080 ==

== ENCOUNTER 2021-03-17 08:40 | Inpatient (IN) | payer MEDICARE ==
[2021-03-17 09:10] LABS: #Eosinphils 0.3 thou/uL (0.0-0.7); #Lymphocytes 2.9 thou/uL (1.20-3.40); #Monocytes 0.7 thou/uL (0.11-0.59); #Neutrophils 4.2 thou/uL (1.40-6.50); %Basophils 0.6 % (0.0-1.0); %Eosinophils 3.9 % (0.0-10.0); %Lymphocytes 35.9 % (21.0-51.0); %Monocytes 8.3 % (0.0-10.0); %Neutrophils 51.3 % (42.0-75.0); Hemoglobin 13.5 g/dL (12.0-16.0); Mean Corpuscular HGB CONC 32.6 g/dL (32.0-36.0); Mean Corpuscular Hemoglobin 28.3 pg (27.0-31.0); Mean Corpuscular Volume 86.8 fL (78.0-98.0); Mean Platelet Volume 6.2 fL (7.4-10.4); Platelet Count 380 thou/uL (130-400); Red Blood Cell (RBC) Count 4.79 mill/uL (4.20-5.40); White Blood Cell (WBC) Count 8.2 thou/uL (4.8-10.8)
[2021-03-17 09:35] LABS: ALT (SGPT) 19 U/L (8-55); AST (SGOT) 24 U/L (5-34); Albumin 4.3 g/dL (3.5-5.0); Alkaline Phosphatase 99 U/L (40-110); Anion Gap 17 mmol/L (10-20); BUN (Urea Nitrogen) 14 mg/dL (9.8-20.1); Bilirubin, Total 0.3 mg/dL (0.2-1.2); Calc. Creatinine Clearance 0 mL/min (70-130); Calcium 9.3 mg/dL (7.8-10.44); Carbon Dioxide 28 mmol/L (22-29); Chloride 101 mmol/L (98-107); Globulin 2.8 g/dL (2.4-3.5); Glucose 144 mg/dL (70-105); Potassium 4.2 mmol/L (3.5-5.1); Protein, Total 7.1 g/dL (6.0-8.3); Sodium 142 mmol/L (136-145)
[2021-03-17] MEDS ORDERED: Iopamidol-370 76% 500 ML 1 ML ONE (10:02)
[2021-03-17] MEDS ORDERED: diphenhydrAMINE 50 MG/ML VIAL ONE (15:44)
[2021-03-17] MEDS ORDERED: Famotidine/PF 20 mg/2ml Vial ONE (15:44)
[2021-03-17] MEDS ORDERED: methylPREDNISolone Sod Succ/PF 125 MG/2 ML VIAL ONE (15:44)
[2021-03-17] MEDS ORDERED: Morphine 4 MG/ML VIAL ONE ×2 (15:55→17:42)
[2021-03-17 18:08] LABS: SARS-CoV-2 NAA Rapid Test Not Detected (NotDetected)
[2021-03-17 18:33] LABS: Troponin I Less than 0.010 ng/mL (< 0.028)
[2021-03-17] MEDS ORDERED: Acetaminophen 325 MG TAB PO PRN (19:36)
[2021-03-17] MEDS ORDERED: Morphine ER 30 MG TAB PO SCH (21:00)
[2021-03-17] MEDS ORDERED: hydrOXYzine 25 MG TAB PO PRN (21:34)
[2021-03-17] MEDS ORDERED: SUMAtriptan Succinate 25 MG TAB PO PRN (21:34)
[2021-03-17] MEDS ORDERED: Fluticasone Propionate Nasal Spray 16 gm Bottle NASAL PRN (21:34)
[2021-03-17 21:56] LABS: Troponin I Less than 0.010 ng/mL (< 0.028)
[2021-03-17] MEDS: Morphine ER 30 MG TAB PO SCH (22:16)
[2021-03-17] MEDS: Morphine 4 MG/ML VIAL SLOW IVP PRN (22:21)
[2021-03-17] MEDS ORDERED: Ondansetron ODT 4 MG TAB SL PRN (22:22)
[2021-03-17] MEDS ORDERED: Gabapentin 400 MG CAP PO SCH (22:30)
[2021-03-17] MEDS ORDERED: Albuterol 200 PUFF (6.7GM INHALER) INH PRN (22:43)
[2021-03-18] MEDS: Morphine 4 MG/ML VIAL SLOW IVP PRN ×2 (01:21→05:32)
[2021-03-18 03:22] VITALS: BMI 33.2
[2021-03-18 05:08] LABS: #Lymphocytes 0.9 thou/uL (1.20-3.40); #Monocytes 0.1 thou/uL (0.11-0.59); #Neutrophils 5.9 thou/uL (1.40-6.50); %Eosinophils 0.4 % (0.0-10.0); %Lymphocytes 12.4 % (21.0-51.0); %Monocytes 1.5 % (0.0-10.0); %Neutrophils 85.7 % (42.0-75.0); Hemoglobin 12.3 g/dL (12.0-16.0); Mean Corpuscular HGB CONC 33.7 g/dL (32.0-36.0); Mean Corpuscular Hemoglobin 29.1 pg (27.0-31.0); Mean Corpuscular Volume 86.3 fL (78.0-98.0); Mean Platelet Volume 6.4 fL (7.4-10.4); Platelet Count 299 thou/uL (130-400); RBC Distribution Width 11.7 % (11.5-14.5); Red Blood Cell (RBC) Count 4.24 mill/uL (4.20-5.40); White Blood Cell (WBC) Count 6.9 thou/uL (4.8-10.8)
[2021-03-18] MEDS: Morphine ER 30 MG TAB PO SCH ×3 (05:26→21:33)
[2021-03-18 05:42] LABS: ALT (SGPT) 17 U/L (8-55); AST (SGOT) 21 U/L (5-34); Albumin 3.9 g/dL (3.5-5.0); Alkaline Phosphatase 77 U/L (40-110); Anion Gap 11 mmol/L (10-20); BUN (Urea Nitrogen) 13 mg/dL (9.8-20.1); Bilirubin, Total 0.3 mg/dL (0.2-1.2); Calc. Creatinine Clearance 114 mL/min (70-130); Carbon Dioxide 30 mmol/L (22-29); Chloride 102 mmol/L (98-107); Globulin 2.8 g/dL (2.4-3.5); Glucose 199 mg/dL (70-105); Potassium 4.7 mmol/L (3.5-5.1); Protein, Total 6.7 g/dL (6.0-8.3); Sodium 138 mmol/L (136-145)
[2021-03-18] MEDS: Cholecalciferol 1,000 UNITS (25 MCG) TAB PO SCH (08:44)
[2021-03-18] MEDS: Furosemide 20 MG TAB PO SCH (08:45)
[2021-03-18] MEDS: Potassium Chloride 20 MEQ TAB PO SCH (08:45)
[2021-03-18] MEDS: Clopidogrel Bisulfate 75 MG TAB PO SCH (08:45)
[2021-03-18] MEDS: Montelukast Sodium 10 mg Tablet PO SCH (08:45)
[2021-03-18] MEDS: Gabapentin 400 MG CAP PO SCH ×3 (08:45→21:35)
[2021-03-18] MEDS: DULoxetine 30 MG CAP PO SCH (08:45)
[2021-03-18] MEDS ORDERED: Docusate 100 MG CAP PO SCH (09:00)
[2021-03-18] MEDS ORDERED: SYMBICORT INH SCH (09:00)
[2021-03-18] MEDS ORDERED: predniSONE 20 MG TAB PO SCH (10:30)
[2021-03-18] MEDS ORDERED: Azithromycin 250 MG TAB PO SCH (10:45)
[2021-03-18] MEDS: Morphine IR Tab 15 MG TAB PO PRN ×2 (10:58→18:07)
[2021-03-18] MEDS: Azithromycin 500 MG in Sodium Chloride 0.9% 250 ML 250 ML IVPB SCH (12:47)
[2021-03-18] MEDS: Mometasone 200 MCG/Formoterol 5 MCG 120 PUFF INHALER INH SCH (18:01)
[2021-03-18] MEDS: Atorvastatin Calcium 10 MG TAB PO SCH (21:35)
[2021-03-19] MEDS: Morphine IR Tab 15 MG TAB PO PRN ×3 (01:51→18:31)
[2021-03-19] MEDS: Morphine ER 30 MG TAB PO SCH ×3 (06:27→21:31)
[2021-03-19] MEDS: Mometasone 200 MCG/Formoterol 5 MCG 120 PUFF INHALER INH SCH ×2 (07:05→20:03)
[2021-03-19] MEDS: predniSONE 20 MG TAB PO SCH (08:28)
[2021-03-19] MEDS: Montelukast Sodium 10 mg Tablet PO SCH (08:29)
[2021-03-19] MEDS: Gabapentin 400 MG CAP PO SCH ×3 (08:29→21:32)
[2021-03-19] MEDS: DULoxetine 30 MG CAP PO SCH (08:29)
[2021-03-19] MEDS: Potassium Chloride 20 MEQ TAB PO SCH (08:29)
[2021-03-19] MEDS: Clopidogrel Bisulfate 75 MG TAB PO SCH (08:29)
[2021-03-19] MEDS: Cholecalciferol 1,000 UNITS (25 MCG) TAB PO SCH (08:29)
[2021-03-19] MEDS: Furosemide 20 MG TAB PO SCH (08:30)
[2021-03-19] MEDS ORDERED: Docusate 100 MG CAP PO SCH (09:00)
[2021-03-19] MEDS ORDERED: Azithromycin 250 MG TAB PO SCH (09:00)
[2021-03-19] MEDS ORDERED: Tofacitinib Citrate [Xeljanz Xr] 11 MG Tab.Er.24h PO SCH (10:30)
[2021-03-19] MEDS ORDERED: Benzonatate 100 MG CAP PO PRN (11:13)
[2021-03-19] MEDS: Azithromycin 500 MG in Sodium Chloride 0.9% 250 ML 250 ML IVPB SCH (12:06)
[2021-03-19] MEDS: guaiFENesin/DM ER PO SCH (21:31)
[2021-03-19] MEDS: Atorvastatin Calcium 10 MG TAB PO SCH (21:31)
[2021-03-20] MEDS: Morphine IR Tab 15 MG TAB PO PRN ×4 (00:12→23:25)
[2021-03-20] MEDS: Morphine ER 30 MG TAB PO SCH ×3 (06:10→21:58)
[2021-03-20] MEDS: Mometasone 200 MCG/Formoterol 5 MCG 120 PUFF INHALER INH SCH ×2 (06:56→19:45)
[2021-03-20 08:31] LABS: Anion Gap 13 mmol/L (10-20); BUN (Urea Nitrogen) 20 mg/dL (9.8-20.1); Calc. Creatinine Clearance 129 mL/min (70-130); Calcium 8.7 mg/dL (7.8-10.44); Carbon Dioxide 32 mmol/L (22-29); Chloride 100 mmol/L (98-107); Glucose 88 mg/dL (70-105); Potassium 4.3 mmol/L (3.5-5.1); Sodium 141 mmol/L (136-145)
[2021-03-20] MEDS: Senokot S 8.6-50 MG TAB PO SCH (08:59)
[2021-03-20] MEDS: Cholecalciferol 1,000 UNITS (25 MCG) TAB PO SCH (09:00)
[2021-03-20] MEDS: Gabapentin 400 MG CAP PO SCH ×3 (09:00→19:36)
[2021-03-20] MEDS: Montelukast Sodium 10 mg Tablet PO SCH (09:00)
[2021-03-20] MEDS: Clopidogrel Bisulfate 75 MG TAB PO SCH (09:00)
[2021-03-20] MEDS: Potassium Chloride 20 MEQ TAB PO SCH (09:01)
[2021-03-20] MEDS: DULoxetine 30 MG CAP PO SCH (09:01)
[2021-03-20] MEDS: Azithromycin 250 MG TAB PO SCH ×2 (09:01→10:17)
[2021-03-20] MEDS: predniSONE 20 MG TAB PO SCH (09:02)
[2021-03-20] MEDS: guaiFENesin/DM ER PO SCH ×2 (09:02→19:37)
[2021-03-20] MEDS: Furosemide 20 MG TAB PO SCH (09:02)
[2021-03-20] MEDS: Tofacitinib Citrate [Xeljanz Xr] 11 MG Tab.Er.24h PO SCH (09:03)
[2021-03-20] MEDS ORDERED: predniSONE 20 MG TAB PO SCH (10:45)
[2021-03-20] MEDS: Atorvastatin Calcium 10 MG TAB PO SCH (19:36)
[2021-03-21] MEDS: Morphine ER 30 MG TAB PO SCH (05:57)
[2021-03-21] MEDS: Mometasone 200 MCG/Formoterol 5 MCG 120 PUFF INHALER INH SCH (06:57)
[2021-03-21] MEDS ORDERED: predniSONE 20 MG TAB PO SCH (08:00)
[2021-03-21] MEDS: Morphine IR Tab 15 MG TAB PO PRN (08:17)
[2021-03-21] MEDS: Gabapentin 400 MG CAP PO SCH (08:19)
[2021-03-21] MEDS: Senokot S 8.6-50 MG TAB PO SCH (08:19)
[2021-03-21] MEDS: Furosemide 20 MG TAB PO SCH (08:20)
[2021-03-21] MEDS: Potassium Chloride 20 MEQ TAB PO SCH (08:20)
[2021-03-21] MEDS: DULoxetine 30 MG CAP PO SCH (08:20)
[2021-03-21] MEDS: Cholecalciferol 1,000 UNITS (25 MCG) TAB PO SCH (08:20)
[2021-03-21] MEDS: Tofacitinib Citrate [Xeljanz Xr] 11 MG Tab.Er.24h PO SCH (08:21)
[2021-03-21] MEDS: Clopidogrel Bisulfate 75 MG TAB PO SCH (08:21)
[2021-03-21] MEDS: guaiFENesin/DM ER PO SCH (08:21)
[2021-03-21] MEDS: Montelukast Sodium 10 mg Tablet PO SCH (08:21)
[2021-03-21 12:44] VITALS: BP 138/84; TEMP 98.1
== END 2021-03-21 14:00 | disposition home or self-care (01) | DRG 191 ==
LOC: ERS 08:40 → ERHOLD 18:01 → 2NO 21:59 → OBSVTOIN 03-19 12:00
PROVIDERS: ADMIT Emergency Medicine; ATTEND Emergency Medicine
DX: J44.1 Chronic obstructive pulmonary disease with (acute) exacerbation (principal); Q79.60 Ehlers-Danlos syndrome, unspecified; I11.0 Hypertensive heart disease with heart failure; E78.5 Hyperlipidemia, unspecified; Z20.822 Contact with and (suspected) exposure to COVID-19; M06.9 Rheumatoid arthritis, unspecified; I73.00 Raynaud's syndrome without gangrene; M81.0 Age-related osteoporosis without current pathological fracture; E55.9 Vitamin D deficiency, unspecified; G43.909 Migraine, unspecified, not intractable, without status migrainosus; G47.31 Primary central sleep apnea; I48.0 Paroxysmal atrial fibrillation; F41.9 Anxiety disorder, unspecified; M06.4 Inflammatory polyarthropathy; K29.60 Other gastritis without bleeding; N20.0 Calculus of kidney; K59.00 Constipation, unspecified; I50.9 Heart failure, unspecified; F32.9 Major depressive disorder, single episode, unspecified; M19.90 Unspecified osteoarthritis, unspecified site; Z88.0 Allergy status to penicillin; Z88.6 Allergy status to analgesic agent; Z88.2 Allergy status to sulfonamides; Z91.041 Radiographic dye allergy status; Z91.013 Allergy to seafood; Z91.018 Allergy to other foods; Z90.710 Acquired absence of both cervix and uterus; Z90.49 Acquired absence of other specified parts of digestive tract; Z79.52 Long term (current) use of systemic steroids; Z79.01 Long term (current) use of anticoagulants; Z79.899 Other long term (current) drug therapy
CPT/HCPCS: 36415; 71045; 71275; 80048; 80053; 83880; 84145; 84484; 85025; 85379; 87040; 87633; 93005; 93306; 94640; 94760; 96365; 96375; 96376; G0378; J0456; J1200; J1956; J2270; J2930; J7050; J7512; J7620; Q9967; S0028; U0002

== ENCOUNTER 2022-02-09 14:53 | Outpatient (CLI) | payer MEDICARE | END 2022-02-09 14:54 | disposition home or self-care (01) | LOC: BICRAD 14:53 | PROVIDERS: ATTEND Family Medicine | DX: M25.512 Pain in left shoulder (principal); M25.552 Pain in left hip ==

== ENCOUNTER 2022-04-19 13:48 | Outpatient (CLI) | payer MEDICARE | END 2022-04-19 13:49 | disposition home or self-care (01) | LOC: BICMAMMO 13:48 | PROVIDERS: ATTEND Internal Medicine Hospice and Palliative Medicine | DX: Z12.31 Encounter for screening mammogram for malignant neoplasm of breast (principal); Z80.3 Family history of malignant neoplasm of breast | CPT/HCPCS: 77063; 77067 ==

== ENCOUNTER 2022-06-01 14:13 | Outpatient (CLI) | payer MEDICARE | END 2022-06-01 14:14 | disposition home or self-care (01) | LOC: BICMAMMO 14:13 | PROVIDERS: ATTEND Internal Medicine Rheumatology | DX: M80.00XA Age-related osteoporosis with current pathological fracture, unspecified site, initial encounter for fracture (principal); M85.88 Other specified disorders of bone density and structure, other site | CPT/HCPCS: 77080 ==

== ENCOUNTER 2022-08-02 13:00 | Emergency (ER) | payer MEDICARE ==
[2022-08-02 14:11] LABS: Mean Corpuscular HGB CONC 32.7 g/dL (32.0-36.0); Mean Corpuscular Hemoglobin 29.1 pg (27.0-31.0); Mean Platelet Volume 6.3 fL (7.4-10.4); Platelet Count 349 10x3/uL (130-400); RBC Distribution Width 11.7 % (11.5-14.5); Red Blood Cell (RBC) Count 5.16 mill/uL (4.20-5.40); White Blood Cell (WBC) Count 9.9 10x3/uL (4.8-10.8)
[2022-08-02 14:25] LABS: Band 4 % (5-11); Lymphocytes 6 % (21-51); MDiff Complete? YES; Monocytes 2 % (0-10); Neutrophil 87 % (42-75); Platelet Morphology Comment Appears Adequate; RBC Morphology Normal
[2022-08-02 14:30] LABS: ALT (SGPT) 19 U/L (8-55); AST (SGOT) 20 U/L (5-34); Albumin 4.2 g/dL (3.5-5.0); Alkaline Phosphatase 84 U/L (40-110); Anion Gap 12 mmol/L (10-20); BUN (Urea Nitrogen) 22 mg/dL (9.8-20.1); Bilirubin, Total 0.3 mg/dL (0.2-1.2); Calc. Creatinine Clearance 0 mL/min (70-130); Calcium 9.5 mg/dL (7.8-10.44); Carbon Dioxide 33 mmol/L (22-29); Chloride 98 mmol/L (98-107); Estimated GFR 101; Globulin 3.1 g/dL (2.4-3.5); Glucose 125 mg/dL (70-105); Potassium 4.4 mmol/L (3.5-5.1); Protein, Total 7.3 g/dL (6.0-8.3); Sodium 139 mmol/L (136-145)
== END 2022-08-02 15:29 | disposition left against medical advice (07) ==
LOC: ERS 13:00
DX: Z53.21 Procedure and treatment not carried out due to patient leaving prior to being seen by health care provider (principal)
CPT/HCPCS: 36415; 71045; 80053; 84484; 85025; 93005

== ENCOUNTER 2023-01-05 08:44 | Outpatient (CLI) | payer MEDICARE | END 2023-01-05 08:45 | disposition home or self-care (01) | LOC: CT 08:44 | PROVIDERS: ATTEND Physician Assistant Medical | DX: R10.9 Unspecified abdominal pain (principal); R93.3 Abnormal findings on diagnostic imaging of other parts of digestive tract; R13.14 Dysphagia, pharyngoesophageal phase; M06.9 Rheumatoid arthritis, unspecified; R50.9 Fever, unspecified; R11.2 Nausea with vomiting, unspecified; R05.9 Cough, unspecified; E83.51 Hypocalcemia | CPT/HCPCS: 74176 ==

== ENCOUNTER 2023-07-10 14:29 | Outpatient (CLI) | payer MEDICARE | END 2023-07-10 14:30 | disposition home or self-care (01) | LOC: BICRAD 14:29 | PROVIDERS: ATTEND Internal Medicine Hospice and Palliative Medicine | DX: M79.605 Pain in left leg (principal); M25.532 Pain in left wrist; M25.512 Pain in left shoulder; R07.89 Other chest pain; M19.012 Primary osteoarthritis, left shoulder ==

== ENCOUNTER 2023-08-21 14:06 | Outpatient (CLI) | payer MEDICARE | END 2023-08-21 14:07 | disposition home or self-care (01) | LOC: BICRAD 14:06 | PROVIDERS: ATTEND Internal Medicine Hospice and Palliative Medicine | DX: M25.532 Pain in left wrist (principal) ==

== ENCOUNTER 2023-09-05 11:49 | Outpatient (CLI) | payer MEDICARE | END 2023-09-05 11:50 | disposition home or self-care (01) | LOC: BICRAD 11:49 | PROVIDERS: ATTEND Internal Medicine Hospice and Palliative Medicine | DX: R10.2 Pelvic and perineal pain (principal) | CPT/HCPCS: 72170 ==

== ENCOUNTER 2024-06-03 13:39 | Outpatient (CLI) | payer MEDICARE | END 2024-06-03 13:40 | disposition home or self-care (01) | LOC: BICMAMMO 13:39 | PROVIDERS: ATTEND Internal Medicine Hospice and Palliative Medicine | DX: Z12.31 Encounter for screening mammogram for malignant neoplasm of breast (principal); Z80.3 Family history of malignant neoplasm of breast | CPT/HCPCS: 77063; 77067 ==

== ENCOUNTER 2024-07-03 10:09 | Day surgery (SDC) | payer MEDICARE ==
[2024-07-02 13:18] VITALS: BMI 28.3
== END 2024-07-03 14:09 | disposition home or self-care (01) ==
LOC: SDC 10:09
PROVIDERS: ATTEND Internal Medicine Cardiovascular Disease
PROC: 0JH602Z Insertion of Monitoring Device into Chest Subcutaneous Tissue and Fascia, Open Approach (ICD-10-PCS; principal; 2024-07-03)
DX: I48.0 Paroxysmal atrial fibrillation (principal); I47.19 Other supraventricular tachycardia; I73.00 Raynaud's syndrome without gangrene; I11.0 Hypertensive heart disease with heart failure; I50.9 Heart failure, unspecified; J44.9 Chronic obstructive pulmonary disease, unspecified; G47.33 Obstructive sleep apnea (adult) (pediatric); G43.909 Migraine, unspecified, not intractable, without status migrainosus; Q79.60 Ehlers-Danlos syndrome, unspecified; M06.9 Rheumatoid arthritis, unspecified; M34.9 Systemic sclerosis, unspecified; M79.7 Fibromyalgia; F32.A Depression, unspecified; F41.9 Anxiety disorder, unspecified; K21.9 Gastro-esophageal reflux disease without esophagitis; Z90.49 Acquired absence of other specified parts of digestive tract; Z90.710 Acquired absence of both cervix and uterus; Z90.89 Acquired absence of other organs; Z91.041 Radiographic dye allergy status; Z88.2 Allergy status to sulfonamides; Z88.0 Allergy status to penicillin; Z88.8 Allergy status to other drugs, medicaments and biological substances; Z91.013 Allergy to seafood; Z79.01 Long term (current) use of anticoagulants; Z79.51 Long term (current) use of inhaled steroids; Z79.899 Other long term (current) drug therapy
CPT/HCPCS: 33285

== ENCOUNTER 2025-05-20 12:41 | Day surgery (SDC) | payer MEDICARE ==
[2025-05-19 14:39] VITALS: BMI 26.6
[2025-05-20] MEDS ORDERED: PROPOFOL 200 MG/20 ML VIAL ONE (14:44)
[2025-05-20] MEDS ORDERED: Ondansetron PF 4 MG/2 ML Vial ONE (14:44)
== END 2025-05-20 16:10 | disposition home or self-care (01) ==
LOC: SDC 12:41
PROVIDERS: ATTEND Internal Medicine Gastroenterology
PROC: 0DB68ZX Excision of Stomach, Via Natural or Artificial Opening Endoscopic, Diagnostic (ICD-10-PCS; principal; 2025-05-20)
PROC: 0D758ZZ Dilation of Esophagus, Via Natural or Artificial Opening Endoscopic (ICD-10-PCS; 2025-05-20)
DX: K20.90 Esophagitis, unspecified without bleeding (principal); K29.50 Unspecified chronic gastritis without bleeding; K44.9 Diaphragmatic hernia without obstruction or gangrene; I11.0 Hypertensive heart disease with heart failure; I50.9 Heart failure, unspecified; I48.91 Unspecified atrial fibrillation; Z88.2 Allergy status to sulfonamides; Z88.6 Allergy status to analgesic agent; Z88.8 Allergy status to other drugs, medicaments and biological substances; Z91.013 Allergy to seafood; Z91.018 Allergy to other foods; Z90.49 Acquired absence of other specified parts of digestive tract; Z90.710 Acquired absence of both cervix and uterus; Z79.899 Other long term (current) drug therapy
CPT/HCPCS: 43239; 43248; J1100 ×2; J2405; J2704; J3490; 88305; 88312; 88342